=== PATIENT | female | born 1990 | race Caucasian/White ===

== ENCOUNTER 2017-08-24 09:25 | Emergency (ER) | payer BC, SELFPAY | END 2017-08-24 11:05 | disposition home or self-care (01) | PROVIDERS: Emergency Provider Nurse Practitioner Family; Family Provider Family Medicine; Visit Provider Nurse Practitioner Family | DX: J01.00 Acute maxillary sinusitis, unspecified (principal); F17.210 Nicotine dependence, cigarettes, uncomplicated; I10 Essential (primary) hypertension; Z79.3 Long term (current) use of hormonal contraceptives; Z79.899 Other long term (current) drug therapy; Z88.6 Allergy status to analgesic agent; Z88.5 Allergy status to narcotic agent; Z88.8 Allergy status to other drugs, medicaments and biological substances | CPT/HCPCS: 99201 ==

== ENCOUNTER 2017-10-26 19:58 | Emergency (ER) | payer OTHER, SELFPAY ==
[2017-10-26 20:17] VITALS: BP 132/87; PULSE 85; RESP 16; TEMP 36.4; O2SAT 98; BMI 35.7
--- NOTE | 2017-10-26 20:29 | XR_ITS ---
XR chest 2V PA and lateral chest Ordering Physician: Shasha Tucker Patient Age: 27 years: Female HISTORY: ITS.REASON: WORSENING COUGH AFTER FLU, SMOKER TECHNIQUE: PA and lateral chest COMPARISON :Previous PA/lateral chest from 01/03/2017 & AP chest November 2013 and rib series 2009 FINDINGS The lungs are well expanded and clear with no focal pneumonia or consolidation. No pneumothorax. No pleural effusion. No significant change since prior studies. Heart, maxwell and mediastinal structures appear satisfactory ribs and chest wall appear intact. T-spine unchanged. The lungs are actually better expanded on today's study than previous film IMPRESSION: Nothing definitely acute. No acute cardiopulmonary disease Lungs appear clear.
--- NOTE | 2017-10-26 20:31 | HMH.EDUTC ---
[facility] [place] Disposition Clinical Impression: Cough, Abnormal chest xray, Influenza-like illness Disposition: Home, Self-Care Condition on Discharge: Good Instructions: DI for Pneumonia -- Adult, DI for Cough -- Adult Additional Instructions: * no for sure diagnosis of pneumonia but possible early changes to suggest onset. Would explain symptoms and pneumonia is one of the more complications of the flu * your blood work suggest viral but could indicate the flu like symptoms virus you are recovering from. due to risk for infection following influenza, I will cover you with an antibiotic as well. * STOP SMOKING!!!! * start antibiotic tomorrow since we gave you first dose here. Be sure to complete entire prescription even if feeling better. * Monitor Temp. Follow up immediately for any fever. * humidifier/vaporizer/hot steamy shower * Inhaler every 4-6 hours as needed like we discussed. If unsure how to use it, ask pharmacist to demonstrate how. Should help open airways and improve cough, wheezing, shortness of breath. * Mucinex during the day for your cough and cough suppressant only at night. Be sure to drink lots of water. Insurance may not cover a prescription of mucinex. Might be cheaper to get 400mg tablets and take 2 tablets morning, midday and evening all with lots of water. * Tessalon Perles will not cause drowsiness but use at bedtime to help stop cough so that you can get some rest * Start steroid tomorrow. Helps with inflammation therefore, cough and wheezing. Follow directions on package. Rvwd side effects. Pt reports they have taken them before. Follow up IMMEDIATELY for new or worsening symptoms OR no noticeable improvement over the next 48-72 hours. 911 for difficulty breathing. Prescriptions: Albuterol Sulfate [Albuterol HFA Inhaler] 1 - 2 puffs IH Q4-6H PRN #1 inh PRN Reason: Shortness Of Breath Or Wheezing Azithromycin [Zithromax 250mg tab] 250 mg PO DAILY #4 tab Benzonatate [Benzonatate 200mg Cap] 200 mg PO HS PRN #14 cap PRN Reason: Cough predniSONE [Deltasone 10mg tablet] 10 mg PO BID 30 Days #9 tab Referrals: Tay Sutton MD [Primary Care Provider] - (Follow up IMMEDIATELY for new or worsening symptoms. If this is this weekend, return to [facility] or ER. Call Sunday and schedule a follow up appt to review final CXR results. 911 for difficulty breathing.) Time of Disposition: 21:52 Medical Decision Making Vital Signs: 10/26/17 20:17 10/26/17 21:53 Temperature 97.5 F L 97.5 F L Temperature Source Temporal Artery Scan Pulse Rate 85 Pulse Rate [Right Brachial] 85 Respiratory Rate 16 16 Blood Pressure 132/87 Blood Pressure [Right Arm] 132/87 Blood Pressure Mean [Right Arm] 102 Blood Pressure Source [Right Arm] Automatic Cuff Blood Pressure Position [Right Arm] Sitting 02 Sat by Pulse Oximetry 98 Oxygen Delivery Method Room Air - Lab Data Lab results reviewed: Yes: I reviewed the patient's lab results. Lab Results 10/26/17 20:25: Influenza Type A Ag Negative, Influenza Type B Ag Negative 10/26/17 20:40: WBC 6.1, RBC 4.49, Hgb 13.0, Hct 38.3, MCV 85.2, MCH 28.8, MCHC 33.8, RDW 12.7, Plt Count 222, MPV 10.4, Neut % (Auto) 32.2 L, Lymph % (Auto) 57.8 H, [place] % (Auto) 7.8, Eos % (Auto) 1.7, Baso % (Auto) 0.5, Neut # (Auto) 2.0, Lymph # (Auto) 3.6, [place] # (Auto) 0.5, Eos # (Auto) 0.1, Baso # (Auto) 0.0, Total Counted 100, Neutrophils % (Manual) 35 L, Band Neutrophils % 2.0, Lymphocytes % (Manual) 57 H, Monocytes % (Manual) 4, Eosinophils % (Manual) 2, Platelet Estimate Normal, RBC Morphology Normal 10/26/17 20:40: Sodium 142, Potassium 4.2, Chloride 108 H, Carbon Dioxide 24, Anion Gap 14.2, BUN 14, Creatinine 0.85, Estimated Creat Clear 150, Estimated GFR 79, Est GFR ( Amer) 96, Glucose 110 H, Calcium 8.5, Total Bilirubin 0.2, AST 13 L, ALT 31, Alkaline Phosphatase 82, Total Protein 7.4, Albumin 3.5, Globulin 3.9 H, Albumin/Globulin Ratio 0.9 L Flu A neg Flu B neg Result diagrams:
[2017-10-26 20:33] LABS: UTC Influenza A Antigen Negative (Negative); UTC Influenza B Antigen Negative (Negative)
--- NOTE | 2017-10-26 20:34 | ED_ITS ---
[facility] [place] Disposition Clinical Impression: Cough, Abnormal chest xray, Influenza-like illness Disposition: Home, Self-Care Condition on Discharge: Good Instructions: DI for Pneumonia -- Adult, DI for Cough -- Adult Additional Instructions: * no for sure diagnosis of pneumonia but possible early changes to suggest onset. Would explain symptoms and pneumonia is one of the more complications of the flu * your blood work suggest viral but could indicate the flu like symptoms virus you are recovering from. due to risk for infection following influenza, I will cover you with an antibiotic as well. * STOP SMOKING!!!! * start antibiotic tomorrow since we gave you first dose here. Be sure to complete entire prescription even if feeling better. * Monitor Temp. Follow up immediately for any fever. * humidifier/vaporizer/hot steamy shower * Inhaler every 4-6 hours as needed like we discussed. If unsure how to use it, ask pharmacist to demonstrate how. Should help open airways and improve cough, wheezing, shortness of breath. * Mucinex during the day for your cough and cough suppressant only at night. Be sure to drink lots of water. Insurance may not cover a prescription of mucinex. Might be cheaper to get 400mg tablets and take 2 tablets morning, midday and evening all with lots of water. * Tessalon Perles will not cause drowsiness but use at bedtime to help stop cough so that you can get some rest * Start steroid tomorrow. Helps with inflammation therefore, cough and wheezing. Follow directions on package. Rvwd side effects. Pt reports they have taken them before. Follow up IMMEDIATELY for new or worsening symptoms OR no noticeable improvement over the next 48-72 hours. 911 for difficulty breathing. Prescriptions: Albuterol Sulfate [Albuterol HFA Inhaler] 1 - 2 puffs IH Q4-6H PRN #1 inh PRN Reason: Shortness Of Breath Or Wheezing Azithromycin [Zithromax 250mg tab] 250 mg PO DAILY #4 tab Benzonatate [Benzonatate 200mg Cap] 200 mg PO HS PRN #14 cap PRN Reason: Cough predniSONE [Deltasone 10mg tablet] 10 mg PO BID 30 Days #9 tab Referrals: Tay Sutton MD [Primary Care Provider] - (Follow up IMMEDIATELY for new or worsening symptoms. If this is this weekend, return to [facility] or ER. Call Sunday and schedule a follow up appt to review final CXR results. 911 for difficulty breathing.) Time of Disposition: 21:52 Medical Decision Making Vital Signs: 10/26/17 20:17 10/26/17 21:53 Temperature 97.5 F L 97.5 F L Temperature Source Temporal Artery Scan Pulse Rate 85 Pulse Rate [Right Brachial] 85 Respiratory Rate 16 16 Blood Pressure 132/87 Blood Pressure [Right Arm] 132/87 Blood Pressure Mean [Right Arm] 102 Blood Pressure Source [Right Arm] Automatic Cuff Blood Pressure Position [Right Arm] Sitting 02 Sat by Pulse Oximetry 98 Oxygen Delivery Method Room Air - Lab Data Lab results reviewed: Yes: I reviewed the patient's lab results. Lab Results 10/26/17 20:25: Influenza Type A Ag Negative, Influenza Type B Ag Negative 10/26/17 20:40: WBC 6.1, RBC 4.49, Hgb 13.0, Hct 38.3, MCV 85.2, MCH 28.8, MCHC 33.8, RDW 12.7, Plt Count 222, MPV 10.4, Neut % (Auto) 32.2 L, Lymph % (Auto) 57.8 H, [place] % (Auto) 7.8, Eos % (Auto) 1.7, Baso % (Auto) 0.5, Neut # (Auto) 2.0, Lymph # (Auto) 3.6, [place] # (Auto) 0.5, Eos # (Auto) 0.1, Baso # (Auto) 0.0 , Total Counted 100, Neutrophils % (Manual) 35 L, Band Neutrophils % 2.0, Lymphocytes % (Manual) 57 H, Monocytes % (Manual) 4, Eosinophils % (Manual) 2, Platelet Estimate Normal, RBC Mo
[2017-10-26 20:59] LABS: Basophils % 0.5 % (0.1-2.0); Eosinophils # 0.1 K/mm3 (0.0-0.4); Eosinophils % 1.7 % (0.1-12.0); Hematocrit 38.3 % (37.0-47.0); Lymphocytes # 3.6 K/mm3 (0.7-4.5); Lymphocytes % 57.8 K/mm3 (10-50); Mean Corpuscular HGB Conc 33.8 g/dL (31.8-35.4); Mean Corpuscular Hemoglobin 28.8 pg (27.0-31.2); Mean Corpuscular Volume 85.2 fl (81-99); Mean Platelet Volume 10.4 fl (7.4-10.4); Monocytes # 0.5 K/mm3 (0.1-1.0); Monocytes % 7.8 % (1.7-9.3); Neutrophils % 32.2 % (37.0-80.0); Platelet Count 222 K/mm3 (142-424); Red Blood Count 4.49 M/mm3 (4.20-5.40); Red Cell Distribution Width 12.7 % (11.5-17.5); White Blood Count 6.1 K/mm3 (4.8-10.8)
[2017-10-26 21:07] LABS: MANUAL DIFFERENTIAL MANUAL DIFFERENTIAL (MANUAL DIFF)
[2017-10-26 21:12] LABS: Alanine Aminotransferase 31 U/L (12-78); Albumin Level 3.5 gm/dL (3.4-5.0); Albumin/Globulin Ratio 0.9 (1.1-1.8); Alkaline Phosphatase 82 U/L (46-116); Anion Gap 14.2 mEq/L (5-15); Aspartate Amino Transferase 13 U/L (15-37); Bilirubin,Total 0.2 mg/dL (0.2-1.0); Blood Urea Nitrogen 14 mg/dL (7-18); Calcium 8.5 mg/dL (8.5-10.1); Carbon Dioxide 24 mmol/L (21.0-32.0); Chloride 108 mmol/L (98-107); Creatinine Clearance Estimated 150 mL/min (0-300); Creatinine,Serum 0.85 mg/dL (0.55-1.02); Estimated Glomerular Filt Rate 79 ml/min (>60); GFR (African American) 96 ML/MIN (>60); Globulin 3.9 gm/dl (1.3-3.2); Glucose 110 mg/dL (74-106); Potassium 4.2 mmoL/L (3.5-5.1); Sodium 142 mmol/L (136-145); Total Protein,Serum 7.4 gm/dL (6.4-8.2)
[2017-10-26 21:34] LABS: Eosinophils % 2 % (0-3); Lymphocytes % 57 % (10-50); Monocytes % 4 % (2-9); Neutrophils % 35 % (42-76); Platelet Estimate Normal; RBC Morphology Normal; Total Cells Counted 100
[2017-10-26 21:53] VITALS: BP 132/87; PULSE 85; RESP 16; TEMP 36.4; O2SAT 98
== END 2017-10-26 21:56 | disposition home or self-care (01) ==
PROVIDERS: Emergency Provider Nurse Practitioner Family; Family Provider Family Medicine; PCP Family Medicine
DX: J11.1 Influenza due to unidentified influenza virus with other respiratory manifestations (principal); R93.8 Abnormal findings on diagnostic imaging of other specified body structures; I10 Essential (primary) hypertension; F17.210 Nicotine dependence, cigarettes, uncomplicated; E87.6 Hypokalemia
CPT/HCPCS: 71046; 80053; 85007; 85025; 87804; 99202

== ENCOUNTER → 2017-11-15 09:11 | Outpatient (CLI) | payer OTHER, SELFPAY ==
--- NOTE | 2017-11-15 09:13 | XR_ITS ---
XR hip LT 2-3V w/pelvis HISTORY: Left hip pain ITS.REASON: hip pain ORDERING PHYSICIAN: Fabian Wynne MD PATIENT AGE: 27 years COMPARISON: None FINDINGS: No fracture or dislocation is evident. No significant degenerative change. No lytic or blastic change. Unremarkable soft tissues. Bilateral tubal ligation clips are present IMPRESSION: Negative left hip
--- NOTE | 2017-11-15 09:13 | XR_ITS ---
XR hip RT 2-3V w/pelvis HISTORY: ITS.REASON: right hip pain ORDERING PHYSICIAN: Fabian Wynne MD PATIENT AGE: 27 years COMPARISON: None FINDINGS: No fracture or dislocation is evident. No significant degenerative change. No lytic or blastic change. Unremarkable soft tissues IMPRESSION: Negative right hip
== END ==
PROVIDERS: PCP Family Medicine; Visit Provider Orthopaedic Surgery
DX: M25.552 Pain in left hip (principal); M25.551 Pain in right hip
CPT/HCPCS: 73502

== ENCOUNTER 2018-07-29 09:00 | Outpatient (RCR) | payer OTHER, SELFPAY | END 2018-07-29 09:05 | disposition home or self-care (01) | LOC: PT 09:00 | PROVIDERS: Family Provider Family Medicine; PCP Family Medicine; Visit Provider Orthopaedic Surgery Adult Reconstructive Orthopaedic Surgery | DX: Z98.890 Other specified postprocedural states (principal); M25.851 Other specified joint disorders, right hip | CPT/HCPCS: 97110; 97140; 97163 ==

== ENCOUNTER 2018-08-16 09:20 | Outpatient (RCR) | payer OTHER, SELFPAY | END 2018-08-16 09:30 | disposition home or self-care (01) | LOC: PT 09:20 | PROVIDERS: Visit Provider Orthopaedic Surgery Adult Reconstructive Orthopaedic Surgery | DX: Z98.890 Other specified postprocedural states (principal); M25.852 Other specified joint disorders, left hip | CPT/HCPCS: 97110; 97163 ==

== ENCOUNTER → 2018-09-24 13:03 | Outpatient (POV) | payer OTHER, SELFPAY | PROVIDERS: Visit Provider Dermatology | DX: Z00.00 Encounter for general adult medical examination without abnormal findings (principal) ==

== ENCOUNTER → 2018-12-12 09:25 | Outpatient (CLI) | payer OTHER, SELFPAY ==
--- NOTE | 2018-12-12 09:30 | US_ITS ---
US transvaginal Ordering Physician: Fabian Freire MD Patient Age: 28 years: Female HISTORY: ITS.REASON: US T/V- Pelvic pain4 months. TECHNIQUE: Transvaginal pelvic ultrasound COMPARISON :CT abdomen pelvis May 2017. FINDINGS The uterus generous upper normal size..: 9.1 cm length x 5 cm AP x 5.5 cm wide. . The technologist identified no discrete fibroids. None are imaged.. Endometrial stripe is thin to the body of the uterus, but becomes generous superiorly at fundus measuring up to 1.1 cm maximally. Overall right ovary including the cyst measures 3.4 x 3.9 x 2.2 cm. Dominant Right ovary cyst is noted and. measures up to 2.5 cm x 2 0.2 thousand 2 cm. Slightly septated cyst. & Possibly hemorrhagic cyst There are some internal echoes. Left ovary with normal limits. Normal size. 2.56 x 2.3 cm x 1.9 cm. Only a few tiny follicles barely evident. No fluid in cul-de-sac. IMPRESSION 1... Right ovary is larger than left. ... Right ovary measures 3.9 cm maximally. ... & contains a slightly septated debris-filled cyst cyst that measures up to 2.5 cm x 2.2 cm. Likely hemorrhagic cyst 2.. Left ovary: Normal size and appearance. 3. Uterus Upper normal size. . endometrial stripe becomes more prominent superiorly towards fundus where it measures up to measures 1.1 cm. AP .
== END ==
PROVIDERS: PCP Family Medicine; Visit Provider Nurse Practitioner Obstetrics & Gynecology
DX: R10.2 Pelvic and perineal pain (principal)
CPT/HCPCS: 76830

== ENCOUNTER → 2020-01-21 12:01 | Outpatient (CLI) | payer SELFPAY ==
[2020-01-21 13:40] LABS: Alanine Aminotransferase 17 U/L (12-78); Albumin Level 4.9 g/dl (3.5-5.0); Albumin/Globulin Ratio 1.8 (1.1-1.8); Alkaline Phosphatase 78 U/L (38-126); Anion Gap 10.4 mEq/L (5-15); Aspartate Amino Transferase 19 U/L (14-36); Bilirubin,Total 0.3 mg/dl (0.2-1.3); Blood Urea Nitrogen 13 mg/dl (7-17); Calcium 10.2 mg/dl (8.4-10.2); Carbon Dioxide 26 mmol/L (22.0-30.0); Chloride 104 mmol/L (98-107); Estimated Glomerular Filt Rate 98 ml/min (>60); GFR (African American) 118 ML/MIN (>60); Globulin 2.8 g/dL (1.3-3.2); Glucose 102 mg/dl (74-100); Potassium 4.4 mmoL/L (3.5-5.1); Sodium 136 mmol/L (136-145); Total Protein,Serum 7.7 g/dl (6.3-8.2)
[2020-01-21 14:11] LABS: Thyroid Stimulating Hormone 2.71 uIU/mL (0.465-4.68)
[2020-01-22 11:16] LABS: Vitamin D 25 Hydroxy 22.1 ng/mL (30.0-100.0)
== END ==
PROVIDERS: Visit Provider Physician Assistant
DX: E06.3 Autoimmune thyroiditis (principal); E87.6 Hypokalemia; E55.9 Vitamin D deficiency, unspecified
CPT/HCPCS: 36415; 80053; 82652; 84439; 84443

== ENCOUNTER → 2022-11-07 09:09 | Outpatient (CLI) | payer OTHER, SELFPAY ==
--- NOTE | 2022-11-07 09:21 | XR_ITS ---
FINAL REPORT CLINICAL HISTORY: BONY TUMOR ON FOREHEAD FINDINGS: FACIAL BONES 3 views were obtained. No obvious fracture is present. Paranasal sinuses are grossly clear. The orbital rims are intact. On the lateral view, there is mild prominence to the frontal bone. No discrete underlying bony lesion is identified and this is favored to be a normal variant. IMPRESSION: No osseous abnormality identified. Reviewed, Interpreted and Dictated by Berenice Quiroz MD Transcribed by Nehal Cheng Authenticated and . [facility]
== END ==
LOC: RAD 09:13
PROVIDERS: PCP Family Medicine; Visit Provider Dermatology
DX: R93.89 Abnormal findings on diagnostic imaging of other specified body structures (principal)
CPT/HCPCS: 70150

== ENCOUNTER → 2022-11-07 09:17 | Outpatient (POV) | payer OTHER, SELFPAY | PROVIDERS: Visit Provider Dermatology | DX: Z00.00 Encounter for general adult medical examination without abnormal findings (principal) ==

== ENCOUNTER 2023-02-12 19:44 | Emergency (ER) | payer SELFPAY ==
[2023-02-12 19:50] VITALS: BP 142/88; PULSE 96; RESP 21; TEMP 37.3; O2SAT 98; BMI 30.4
[2023-02-12 19:57] LABS: Color,Urine Dark Yellow (Yellow)
[2023-02-12 19:58] LABS: Apearance,Urine Cloudy (Clear); Bilirubin,Urine Negative (Negative); Blood, Urine 1+ (Negative); Glucose,Urine (UA) Negative (Negative); Ketones,Urine Negative (Negative); Protein,Urine 1+ (Negative); Specific Gravity, Urine 1.015 (1.005-1.030); UTC Leukocyte Esterase,Urine 2+ (Negative); UTC Nitrate,Urine Positive (Negative); Urobilinogen,Urine 0.2 EU/dl (0.2)
[2023-02-12 20:02] VITALS: BP 142/88; PULSE 96; RESP 21; TEMP 37.3; O2SAT 98
--- NOTE | 2023-02-12 20:04 | EXP.UTC ---
Discharge Plan Disposition Patient Disposition: Home, Self-Care Condition: Good Prescriptions Prescriptions: New ciprofloxacin HCl [Cipro] 500 mg tablet 500 mg PO BID 7 Days Qty: 14 0RF No Action venlafaxine 225 mg tablet extended release 24hr 225 mg PO DAILY 30 Days Qty: 30 tramadol 50 mg tablet 100 mg PO DAILY 30 Days Qty: 60 gabapentin 300 mg capsule 300 mg PO BID 30 Days Qty: 60 hydroxyzine HCl 50 mg tablet 50 mg PO DAILY labetalol 200 mg tablet 200 mg PO BID nitrofurantoin monohyd/m-cryst [Macrobid] 100 mg capsule 100 mg PO BID Qty: 14 0RF Rx Instructions: must administer with a meal/food phenazopyridine 100 MG tablet 100 mg PO BID PRN (Reason: Breakthru Mild Pain) 3 Days Qty: 6 0RF phenazopyridine 100 MG tablet 100 mg PO BID PRN (Reason: Breakthru Mild Pain) 3 Days Qty: 6 0RF fluticasone propionate 120 SPR/BOT bottle 2 spr NS DAILY Qty: 1 0RF Rx Instructions: each nostril daily phenazopyridine 200 MG tablet 200 pow PO TID Qty: 6 0RF ondansetron 4 MG tablet,disintegrating 4 mg PO Q8HP PRN (Reason: Nausea) Qty: 9 0RF nitrofurantoin monohyd/m-cryst 100 MG capsule 100 mg PO BID 5 Days Qty: 10 0RF Referrals Follow up/Referrals: Tay Sutton MD [Primary Care Provider] - See instructions Activity Restrictions/Add. Instructions Additional Instructions/Restrictions: *Increase fluids. Water not Soda or Tea *Start antibiotic immediately and be sure to take as ordered for the FULL length of time although you should start to see improvement over the next 48 hours *Be SURE to follow up anytime for new or worsening symptoms with your family doctor. AND in 48 hours for urine culture results with your family doctor, if you do not have a doctor then you may call back to the [facility] for urine culture results and further treatment. We do recommend that you choose and establish care with a Primary Care Physician. ?AND follow up with them ?in 10-14 days to repeat UA to ensure infection is resolved and blood no longer present *Be sure to let your PCP know that we sent urine cultures from the [facility] so they can follow up to ensure that you area the on the correct antibiotic Call your doctor office and make appointment for 48 hours (2 days from today) ?to follow up and get the results of your urine culture and further treatment Clinical Impressions Clinical Impression: UTI (urinary tract infection) Instructions Patient Instructions: Ciprofloxacin, DI for Urinary Tract Infection (UTI), Urinary Tract Infection Discharge ED Provider: Roula Underwood [facility] [place] HPI General Stated complaint: fever backpain chills Mode of Arrival: Ambulatory Source of Information: Patient Limitations: No Limitations Time Seen by Provider: 02/12/23 20:04 Description of Symptoms (Recalled from Triage Doc. by RN): PATIENT C/O FEVER, CHILLS, NAUSEA, AND LOWER BACK PAIN X 5 DAYS HEENT Symptoms (Recalled from RN notes): No Resp Symptoms (Recalled from RN notes): No Skin Symptoms (Recalled from RN notes): No MS Symptoms (Recalled from RN notes): No Functional Status (Recalled from RN notes): WNL History of Present Illness Provider Complaint: Patient states that she started on with bodyaches, chills, low grade fever and not feeling well States that she laid around the weekend and then yesterday she started having low back pain States that today she was still not feeling well so she came in to get checked not sure if she may have a UTI or flu or something Related Data Home Medications Medication Instructions Recorded Confirmed hydroxyzine HCl 50 mg tablet 50 mg PO DAILY Anxiety 11/15/17 12/31/18 labetalol 200 mg tablet 200 mg PO BID bp 11/15/17 12/31/18 gabapentin 300 mg capsule 300 mg PO BID Pain 30 days #60 caps 12/06/18 12/31/18 tramadol 50 mg tablet 100 mg PO DAILY Pain 30 days #60 12/06/18 12/31/18 tabs venlafaxine 225 mg tablet,extended 225 mg PO DAILY Depressi
== END 2023-02-12 20:38 | disposition home or self-care (01) ==
PROVIDERS: Emergency Provider Nurse Practitioner; PCP Family Medicine
DX: N39.0 Urinary tract infection, site not specified (principal); R50.9 Fever, unspecified; M54.59 Other low back pain; F17.210 Nicotine dependence, cigarettes, uncomplicated; B96.89 Other specified bacterial agents as the cause of diseases classified elsewhere
CPT/HCPCS: 81003; 87086; 87088; 87186; 99204; 99212; G0463

== ENCOUNTER 2023-04-29 15:05 | Emergency (ER) | payer SELFPAY ==
[2023-04-29] VITALS (11 sets, daily range): BP systolic 123–174; BP diastolic 84–113; PULSE 67–108; RESP 17–19; TEMP 36.6–36.8; O2SAT 95–100; BMI 31.6
--- NOTE | 2023-04-29 15:02 | ECG_ITS ---
APPROVED REPORT Exam: Resting ECG HR:103 bpm ECG Measurements Heart Rate 103 AXES CA 131 P 69 QRSd 105 QRS 66 QT 351 T 7 QTc 411 Conclusion SINUS TACHYCARDIA NONSPECIFIC ST & T-WAVE ABNORMALITY ABNORMAL RHYTHM ECG UNCONFIRMED REPORT Electronically signed by : Chris Donovan MD 05/01/2023 19:47:46
--- NOTE | 2023-04-29 15:13 | PC.NURSE ---
at bs speaking with pt
--- NOTE | 2023-04-29 15:19 | HMH.EDGENADL ---
Discharge Plan Disposition Patient Disposition: Home, Self-Care Condition: Good Chief Complaint: Chest Pain Prescriptions Prescriptions: No Action venlafaxine 225 mg tablet extended release 24hr 225 mg PO DAILY 30 Days Qty: 30 tramadol 50 mg tablet 100 mg PO DAILY 30 Days Qty: 60 gabapentin 300 mg capsule 300 mg PO BID 30 Days Qty: 60 hydroxyzine HCl 50 mg tablet 50 mg PO DAILY labetalol 200 mg tablet 200 mg PO BID nitrofurantoin monohyd/m-cryst [Macrobid] 100 mg capsule 100 mg PO BID Qty: 14 0RF Rx Instructions: must administer with a meal/food phenazopyridine 100 MG tablet 100 mg PO BID PRN (Reason: Breakthru Mild Pain) 3 Days Qty: 6 0RF phenazopyridine 100 MG tablet 100 mg PO BID PRN (Reason: Breakthru Mild Pain) 3 Days Qty: 6 0RF fluticasone propionate 120 SPR/BOT bottle 2 spr NS DAILY Qty: 1 0RF Rx Instructions: each nostril daily phenazopyridine 200 MG tablet 200 pow PO TID Qty: 6 0RF ondansetron 4 MG tablet,disintegrating 4 mg PO Q8HP PRN (Reason: Nausea) Qty: 9 0RF nitrofurantoin monohyd/m-cryst 100 MG capsule 100 mg PO BID 5 Days Qty: 10 0RF ciprofloxacin HCl [Cipro] 500 mg tablet 500 mg PO BID 7 Days Qty: 14 0RF Referrals Follow up/Referrals: Provider,Referral, MD [Referring] - See instructions Activity Restrictions/Add. Instructions Additional Instructions/Restrictions: At this time it was felt you are safe to be discharged home. If new or worsening symptoms please do not hesitate to return the emergency department. Please follow-up on an outpatient basis for continued evaluation of your anxiety. Clinical Impressions Clinical Impression: Chest pain, Anxiety Discharge ED Provider: Karsten Harris General Adult HPI General Chief complaint: Chest Pain Stated complaint: cp Time Seen by Provider: 04/29/23 15:10 Mode of Arrival: Ambulatory Source of Information: Patient Limitations: No Limitations Description of Symptoms (Recalled from ER Triage Doc. by RN): 32 yo F presents to ED with c/o chest pain. pts reports intermittent chest pain radiating to shoulders. pt concerned for uti, because she states that her kidneys have also been hurting. History of Present Illness HPI narrative: Patient is a 32-year-old female with past medical history of palpitations who presents emergency department for evaluation of chest burning. Onset was acute, occurring approximately an hour prior to arrival. Substernal, radiating up to her left shoulder blade in her back as well as down her left upper extremity. Patient states she feels she has right kidney pain consistent with her previous urinary tract infections. Denies true dysuria however states she does not have dysuria with her urinary tract infections. No other acute complaints at this time. Related Data Home Medications Medication Instructions Recorded Confirmed hydroxyzine HCl 50 mg tablet 50 mg PO DAILY Anxiety 11/15/17 12/31/18 labetalol 200 mg tablet 200 mg PO BID bp 11/15/17 12/31/18 gabapentin 300 mg capsule 300 mg PO BID Pain 30 days #60 caps 12/06/18 12/31/18 tramadol 50 mg tablet 100 mg PO DAILY Pain 30 days #60 12/06/18 12/31/18 tabs venlafaxine 225 mg tablet,extended 225 mg PO DAILY Depression 30 days 12/06/18 12/31/18 release 24 hr #30 tabs Previous Rx's Medication Instructions Recorded phenazopyridine 100 mg tablet 100 mg PO BID PRN Breakthru Mild 03/29/19 Pain 3 days #6 tabs phenazopyridine 100 mg tablet 100 mg PO BID PRN Breakthru Mild 03/29/19 Pain 3 days #6 tabs nitrofurantoin 100 mg PO BID #14 caps 04/01/19 monohydrate/macrocrystals 100 mg capsule (Macrobid) fluticasone propionate 50 2 spr NS DAILY ##1 05/27/19 mcg/actuation nasal spray,suspension nitrofurantoin 100 mg PO BID 5 days #10 caps 11/23/19 monohydrate/macrocrystals 100 mg capsule ondansetron 4 mg disintegrating 4 mg PO Q8HP PRN Nausea ##9 11/23/19 tablet p
--- NOTE | 2023-04-29 15:24 | CT_ITS ---
PROCEDURE INFORMATION: Exam: CTA Chest With Contrast Exam date and time: 04/29/2023 4:14 PM Age: 32 years old Clinical indication: Pain; Other: Generalized chest burning sensation; Patient HX: Chest burning sendsation for 3 days. Possible panic attack per patient. ; Additional info: Cp radiating to back, L arm, tachy TECHNIQUE: Imaging protocol: Computed tomographic angiography of the chest with contrast. Exam focused on the arteries. 3D rendering (Not supervised by radiologist): MIP and/or 3D reconstructed images were created by the technologist. Radiation optimization: All CT scans at this facility use at least one of these dose optimization techniques: automated exposure control; mA and/or kV adjustment per patient size (includes targeted exams where dose is matched to clinical indication); or iterative reconstruction. Contrast material: ISOVUE 370; Contrast volume: 100 ml; Contrast route: INTRAVENOUS (IV); REPORTING DATA: Count of CT and Cardiac NM exams in prior 12 months: This patient has received 0 known CTs and 0 known cardiac nuclear medicine studies in the 12 months prior to the current study. COMPARISON: CR CXR2V XR chest 2V 08/14/2018 3:48 PM FINDINGS: Pulmonary arteries: No evidence of pulmonary embolism. Aorta: No aortic dissection or aneurysm. Lungs: No evidence of acute airspace consolidation. No pulmonary edema. Pleural spaces: No pneumothorax. No pleural effusion. Heart: No cardiomegaly. No significant pericardial effusion. Lymph nodes: No enlarged lymph nodes by CT criteria. Intraperitoneal space: No emergent findings or suspicious mass lesions in the visualized upper abdomen. Bones/joints: No acute osseous abnormality. Soft tissues: Unremarkable. IMPRESSION: No evidence of pulmonary embolism or other acute process in the chest.
[2023-04-29 15:28] LABS: Microscopic, Urine URINE MICROSCOPIC (MICROSCOPIC)
[2023-04-29 15:33] LABS: Basophils # 0.1 K/mm3 (0-0.2); Basophils % 0.7 % (0.1-2.0); Eosinophils # 0.1 K/mm3 (0.0-0.4); Eosinophils % 1.1 % (0.1-12.0); Hematocrit 38.3 % (37.0-47.0); Hemoglobin 12.9 g/dL (12.2-16.2); Lymphocytes # 3.1 K/mm3 (0.7-4.5); Lymphocytes % 27.9 % (10-50); Mean Corpuscular HGB Conc 33.8 g/dL (31.8-35.4); Mean Corpuscular Hemoglobin 29.1 pg (27.0-31.2); Mean Corpuscular Volume 86.1 fl (81-99); Mean Platelet Volume 9.7 fl (7.4-10.4); Monocytes # 0.7 K/mm3 (0.1-1.0); Monocytes % 6.3 % (1.7-9.3); Neutrophils # 7.1 K/mm3 (1.8-7.8); Neutrophils % 63.9 % (37.0-80.0); Platelet Count 298 K/mm3 (142-424); Red Blood Count 4.45 M/mm3 (4.20-5.40); Red Cell Distribution Width 13.2 % (11.5-17.5); White Blood Count 11.1 K/mm3 (4.8-10.8)
[2023-04-29 15:35] LABS: Chloride 104 mmol/L (98-107)
[2023-04-29 15:35] LABS: Appearance,Urine CLEAR (Clear); Bilirubin,Urine Negative (Negative); Blood, Urine Negative (Negative); Color,Urine YELLOW (Yellow); Glucose,Urine (UA) Negative (Negative); Ketones,Urine Negative (Negative); Leukocyte Esterase,Urine Negative (Negative); Nitrate,Urine Negative (Negative); PH,Urine 5.5 (5.0-8.5); Protein,Urine Negative (Negative); Urobilinogen,Urine 0.2 EU/dl (0.2)
[2023-04-29 15:36] LABS: Potassium 3.4 mmoL/L (3.5-5.1); Sodium 141 mmol/L (136-145)
[2023-04-29 15:38] LABS: Blood Urea Nitrogen 8 mg/dl (7-17); Creatinine Clearance Estimated 120 mL/min (50-200); Estimated Glomerular Filt Rate 72 ml/min (>60); GFR (African American) 87 ML/MIN (>60); HCG Qualitative, Serum Negative (Negative)
[2023-04-29 15:39] LABS: Alanine Aminotransferase 25 U/L (12-78); Albumin Level 4.5 g/dl (3.5-5.0); Albumin/Globulin Ratio 1.3 (1.1-1.8); Alkaline Phosphatase 73 U/L (38-126); Anion Gap 17.4 mEq/L (5-15); Aspartate Amino Transferase 31 U/L (14-36); Bilirubin,Total 0.5 mg/dl (0.2-1.3); Calcium 9.9 mg/dl (8.4-10.2); Carbon Dioxide 23 mmol/L (22.0-30.0); Globulin 3.4 g/dL (1.3-3.2); Glucose 91 mg/dl (74-100); Total Protein,Serum 7.9 g/dl (6.3-8.2)
[2023-04-29 15:42] LABS: Squamous Epithelial Cell,Urine Occasional #/hpf (0-5); WBC,Urine Occasional #/hpf (0-3)
--- NOTE | 2023-04-29 15:47 | ECG_ITS ---
APPROVED REPORT Exam: Resting ECG HR:99 bpm ECG Measurements Heart Rate 99 AXES [place] 130 P 72 QRSd 101 QRS 68 QT 347 T 49 QTc 404 Conclusion SINUS RHYTHM NONSPECIFIC ST & T-WAVE ABNORMALITY BORDERLINE ECG UNCONFIRMED REPORT Electronically signed by : Chris Donovan MD 05/01/2023 19:47:28
[2023-04-29 15:50] LABS: Troponin I < 0.01 ng/ml (0.00-0.034)
[2023-04-29 18:33] LABS: Troponin I < 0.01 ng/ml (0.00-0.034)
== END 2023-04-29 19:15 | disposition home or self-care (01) ==
PROVIDERS: Emergency Provider Emergency Medicine; PCP Family Medicine
DX: R07.9 Chest pain, unspecified (principal); M79.602 Pain in left arm; M25.512 Pain in left shoulder; F17.210 Nicotine dependence, cigarettes, uncomplicated
CPT/HCPCS: 36415; 71275; 80053; 81001; 84484; 84703; 85025; 93005; 96361; 96374; 96375; 99285; Q9967

== ENCOUNTER 2023-05-16 23:42 | Emergency (ER) | payer SELFPAY ==
[2023-05-16 23:49] VITALS: BP 160/105; PULSE 109; RESP 18; TEMP 36.9; O2SAT 98; BMI 31.1
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
[2023-05-17 00:29] LABS: Basophils # 0.1 K/mm3 (0-0.2); Basophils % 0.5 % (0.1-2.0); Eosinophils # 0.1 K/mm3 (0.0-0.4); Eosinophils % 0.6 % (0.1-12.0); Hematocrit 40.5 % (37.0-47.0); Hemoglobin 13.5 g/dL (12.2-16.2); Lymphocytes # 1.9 K/mm3 (0.7-4.5); Lymphocytes % 14.3 % (10-50); Mean Corpuscular HGB Conc 33.3 g/dL (31.8-35.4); Mean Platelet Volume 9.6 fl (7.4-10.4); Monocytes # 0.7 K/mm3 (0.1-1.0); Monocytes % 5.6 % (1.7-9.3); Neutrophils # 10.4 K/mm3 (1.8-7.8); Platelet Count 319 K/mm3 (142-424); Red Blood Count 4.65 M/mm3 (4.20-5.40); Red Cell Distribution Width 12.9 % (11.5-17.5); White Blood Count 13.2 K/mm3 (4.8-10.8)
[2023-05-17 00:31] LABS: Chloride 107 mmol/L (98-107); Potassium 3.5 mmoL/L (3.5-5.1); Sodium 141 mmol/L (136-145)
[2023-05-17 00:33] LABS: Blood Urea Nitrogen 15 mg/dl (7-17)
[2023-05-17 00:34] LABS: Alanine Aminotransferase 22 U/L (12-78); Albumin Level 4.5 g/dl (3.5-5.0); Albumin/Globulin Ratio 1.4 (1.1-1.8); Alkaline Phosphatase 76 U/L (38-126); Anion Gap 14.5 mEq/L (5-15); Aspartate Amino Transferase 25 U/L (14-36); Bilirubin,Total 0.8 mg/dl (0.2-1.3); Calcium 10.1 mg/dl (8.4-10.2); Carbon Dioxide 23 mmol/L (22.0-30.0); Creatinine Clearance Estimated 133 mL/min (50-200); Estimated Glomerular Filt Rate 82 ml/min (>60); GFR (African American) 99 ML/MIN (>60); Globulin 3.3 g/dL (1.3-3.2); Glucose 114 mg/dl (74-100); Total Protein,Serum 7.8 g/dl (6.3-8.2)
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
[2023-05-17 01:05] VITALS: BP 123/75; PULSE 75; RESP 19; TEMP 36.6; O2SAT 98
== END 2023-05-17 01:07 | disposition home or self-care (01) ==
PROVIDERS: Emergency Provider Emergency Medicine; PCP Family Medicine
DX: T71.193A Asphyxiation due to mechanical threat to breathing due to other causes, assault, initial encounter (principal); M54.2 Cervicalgia; Y04.8XXA Assault by other bodily force, initial encounter; Y07.030 Male partner, current, perpetrator of maltreatment and neglect
CPT/HCPCS: 70498; 80053; 85025; 99284; Q9967

== ENCOUNTER 2023-05-17 10:50 | Emergency (ER) | payer SELFPAY ==
[2023-05-17 11:00] VITALS: BP 167/93; PULSE 101; RESP 21; TEMP 36.7; O2SAT 100; BMI 30.9
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
[2023-05-17 11:40] VITALS: BP 167/93; PULSE 101; RESP 21; TEMP 36.7; O2SAT 100
== END 2023-05-17 11:42 | disposition home or self-care (01) ==
PROVIDERS: Emergency Provider Nurse Practitioner; PCP Family Medicine
DX: F41.0 Panic disorder [episodic paroxysmal anxiety] (principal)
CPT/HCPCS: 99212; 99214; G0463

== ENCOUNTER → 2023-06-14 14:05 | Outpatient (CLI) | payer BC, SELFPAY ==
[2023-06-14 21:17] LABS: Thyroid Stimulating Hormone 2.77 uIU/mL (0.465-4.68)
== END ==
PROVIDERS: PCP Internal Medicine; Visit Provider Internal Medicine
DX: E05.90 Thyrotoxicosis, unspecified without thyrotoxic crisis or storm (principal)
CPT/HCPCS: 84443

== ENCOUNTER → 2023-07-19 16:04 | Outpatient (CLI) | payer BC, SELFPAY ==
--- NOTE | 2023-07-19 16:04 | US_ITS ---
PROCEDURE: US TRANSVAGINAL CLINICAL INDICATION: abnormal heavy uterine bleeding COMPARISON: No exams were available for comparison FINDINGS: Transvaginal sonographic images of the pelvis were obtained. UTERUS: 9.5 cm x 4.7 cmx 5.5 cm with a combined endometrial thickness of 9.9mm. There is a 1.2 cm nabothian cyst in the cervix. . LEFT OVARY: 2.1 cmx2.3 cmx2.2cm with a volume of 5.4ml. There are several small follicles in the left ovary the largest of which measures 1.5 cm x 1.2 cm x 1.2 cm. RIGHT OVARY: 4.5 cmx 3.7 cmx2.5 cm with a volume of 21.1ml. There is a multilocular follicle in the right ovary measuring 3.3 cm x 3.0 cm x 2.3 cm. Doppler flow to both ovaries are seen. There is no fluid in the cul-de-sac. IMPRESSION: 1. Anteverted bulky uterus upper limits of normal size. The endometrium appears normal. 2. The left ovary has a number of small follicles. 3. The right ovary has a multilocular dominant follicle measuring 3.3 cm. 4. No fluid in the cul-de-sac. Dictated by: Fabian Freire MD 07/19/2023 17:10 Fabian Freire MD in OV 07/19/2023 17:10
== END ==
PROVIDERS: PCP Internal Medicine; Visit Provider Nurse Practitioner Obstetrics & Gynecology
DX: N93.9 Abnormal uterine and vaginal bleeding, unspecified (principal)
CPT/HCPCS: 76830

== ENCOUNTER 2023-10-18 11:08 | Emergency (ER) | payer BC, SELFPAY ==
[2023-10-18 11:45] VITALS: BP 174/86; PULSE 87; RESP 18; TEMP 36.7; O2SAT 97; BMI 34.2
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
[2023-10-18 12:06] LABS: Apearance,Urine Clear (Clear); Bilirubin,Urine Negative (Negative); Blood, Urine Negative (Negative); Color,Urine Yellow (Yellow); Glucose,Urine (UA) Negative (Negative); Ketones,Urine Negative (Negative); Protein,Urine Negative (Negative); Specific Gravity, Urine 1.015 (1.005-1.030); UTC Leukocyte Esterase,Urine Negative (Negative); UTC Nitrate,Urine Negative (Negative); Urobilinogen,Urine 0.2 EU/dl (0.2)
[2023-10-18 12:17] VITALS: BP 174/86; PULSE 87; RESP 18; TEMP 36.7; O2SAT 97
== END 2023-10-18 12:17 | disposition home or self-care (01) ==
PROVIDERS: Emergency Provider Nurse Practitioner; PCP Internal Medicine
DX: R10.30 Lower abdominal pain, unspecified (principal); M54.50 Low back pain, unspecified; R35.0 Frequency of micturition; R39.15 Urgency of urination; F17.290 Nicotine dependence, other tobacco product, uncomplicated
CPT/HCPCS: 81003; 87086; 99212; 99214; G0463

== ENCOUNTER 2023-11-27 07:58 | Outpatient (CLI) | payer BC, SELFPAY ==
--- NOTE | 2023-11-27 07:58 | US_ITS ---
FINAL REPORT TECHNIQUE: Ultrasound images of the kidneys and bladder were obtained. CLINICAL HISTORY: .hypertension COMPARISON: None FINDINGS: The right kidney measures 9.6 cm in length. It is normal in echogenicity. There is no hydronephrosis. The left kidney measures 9.9 cm in length. It is normal in echogenicity. There is no hydronephrosis. The urinary bladder is unremarkable. IMPRESSION: Unremarkable renal ultrasound. Reviewed, Interpreted and Dictated by Sandeep Bocanegra III, MD Transcribed by Kristie Soto Authenticated and [facility]
--- NOTE | 2023-11-27 07:58 | US_ITS ---
FINAL REPORT TECHNIQUE: Limited sonographic images of the thyroid were obtained. CLINICAL HISTORY: thyroid nodule--no prev us here FINDINGS: The thyroid is somewhat enlarged with a heterogeneous echotexture. The right lobe of the thyroid measures 5.9 x 2.8 x 2.0 cm. There is a probable parathyroid gland on the right. The left lobe of the thyroid measures 5.3 x 2.2 x 1.8 cm. No mass or nodule is identified. The isthmus measures 8 mm. There is a dominant, solid hypoechoic nodule measuring 22 x 13 x 19 mm. IMPRESSION: Dominant isthmus nodule. Recommend ultrasound-guided biopsy. Reviewed, Interpreted and Dictated by Sandeep Bocanegra III, MD Transcribed by Bridget Rashid Authenticated and [facility]
--- NOTE | 2023-11-27 08:02 | CA_ITS ---
FINAL REPORT TECHNIQUE: Grayscale, color Doppler and duplex Doppler ultrasound of the kidneys, aorta and renal arteries was performed. Multiple velocities were measured. CLINICAL HISTORY: uncontrolled htn COMPARISON: None FINDINGS: Aorta velocity: 95 cm/sec Right kidney: 10.7 cm. No evidence of hydronephrosis or mass. Right intrarenal RI: 0.60-0.63 Right renal artery velocity: 156 cm/sec. Right RAR (Renal artery-Aortic Ratio): 1.65 Left Kidney: 10.5 cm. No evidence of hydronephrosis or mass. Left intrarenal RI: 0.57-0.61 Left renal artery velocity: 153 cm/sec. Left RAR (Renal Artery-Aortic Ratio): 1.62 IMPRESSION: No evidence of significant renal artery stenosis. CT angiogram or postcontrast MR angiogram would be more sensitive for evaluation of possible renal artery stenosis. Reviewed, Interpreted and Dictated by Sandeep Bocanegra III, MD Transcribed by Kristie Soto Authenticated and [facility]
== END 2023-11-27 23:59 ==
LOC: RT 07:58
PROVIDERS: PCP Internal Medicine; Visit Provider Family Medicine
DX: E04.9 Nontoxic goiter, unspecified (principal); I10 Essential (primary) hypertension; F17.290 Nicotine dependence, other tobacco product, uncomplicated
CPT/HCPCS: 76536; 76770; 93976

== ENCOUNTER 2023-12-28 01:03 | Emergency (ER) | payer BC, SELFPAY ==
[2023-12-28 01:03] VITALS: BP 167/91; PULSE 85; RESP 16; TEMP 36.6; O2SAT 100; BMI 33.0
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
--- NOTE | 2023-12-28 01:09 | ECG_ITS ---
APPROVED REPORT Exam: Resting ECG HR:97 bpm ECG Measurements Heart Rate 97 AXES OR 152 P 72 QRSd 112 QRS 58 QT 360 T 24 QTc 414 Conclusion SINUS RHYTHM MODERATE INTRAVENTRICULAR CONDUCTION DELAY [110+ ms QRS DURATION] NONSPECIFIC ST & T-WAVE ABNORMALITY BORDERLINE ECG UNCONFIRMED REPORT Electronically signed by : PETER GE, 12/31/2023 02:56:51
--- NOTE | 2023-12-28 01:14 | XR_ITS ---
PROCEDURE INFORMATION: Exam: XR Chest Exam date and time: 12/28/2023 1:28 AM Age: 33 years old Clinical indication: Pain; Chest pressure; Additional info: Cp TECHNIQUE: Imaging protocol: Radiologic exam of the chest. Views: 1 view. COMPARISON: CT ANGIO CHEST 04/29/2023 4:14 PM FINDINGS: Lungs: No evidence of acute pulmonary disease or infiltrates Pleural spaces: No large effusion or pneumothorax. Heart/Mediastinum: No evidence of mediastinal widening or cardiac silhouette enlargement; the mediastinum and heart appear within normal limits for contour and size. Bones/joints: No evidence of acute osseous abnormalities within the visualized portions of the thoracic spine and ribs. Osseous structures appear appropriate for patient age. IMPRESSION: No dense parenchymal consolidation, pleural effusion, or pneumothorax.
[2023-12-28 01:21] LABS: Basophils # 0.1 K/mm3 (0-0.2); Basophils % 1.2 % (0.1-2.0); Eosinophils # 0.1 K/mm3 (0.0-0.4); Eosinophils % 0.8 % (0.1-12.0); Hematocrit 37.5 % (37.0-47.0); Hemoglobin 12.4 g/dL (12.2-16.2); Lymphocytes # 4.3 K/mm3 (0.7-4.5); Mean Corpuscular HGB Conc 32.9 g/dL (31.8-35.4); Mean Corpuscular Hemoglobin 29.8 pg (27.0-31.2); Mean Corpuscular Volume 90.5 fl (81-99); Mean Platelet Volume 9.4 fl (7.4-10.4); Monocytes # 0.6 K/mm3 (0.1-1.0); Monocytes % 5.1 % (1.7-9.3); Neutrophils # 6.8 K/mm3 (1.8-7.8); Neutrophils % 56.8 % (37.0-80.0); Platelet Count 332 K/mm3 (142-424); Red Blood Count 4.14 M/mm3 (4.20-5.40); Red Cell Distribution Width 13.5 % (11.5-17.5)
[2023-12-28 01:30] LABS: HCG Qualitative, Serum Negative (Negative)
[2023-12-28 01:31] LABS: Alanine Aminotransferase 22 U/L (12-78); Albumin Level 4.6 g/dl (3.5-5.0); Albumin/Globulin Ratio 1.5 (1.1-1.8); Alkaline Phosphatase 75 U/L (38-126); Anion Gap 11.4 mEq/L (5-15); Aspartate Amino Transferase 24 U/L (14-36); Bilirubin,Total 0.5 mg/dl (0.2-1.3); Blood Urea Nitrogen 11 mg/dl (7-17); Calcium 9.2 mg/dl (8.4-10.2); Carbon Dioxide 27 mmol/L (22.0-30.0); Chloride 107 mmol/L (98-107); Creatinine Clearance Estimated 128 mL/min (50-200); Estimated Glomerular Filt Rate 71 ml/min (>60); GFR (African American) 86 ML/MIN (>60); Glucose 125 mg/dl (74-100); Potassium 3.4 mmoL/L (3.5-5.1); Sodium 142 mmol/L (136-145); Total Protein,Serum 7.6 g/dl (6.3-8.2)
[2023-12-28 01:36] LABS: D-Dimer 0.46 ug/mL (0.0-0.5)
[2023-12-28 01:43] LABS: Troponin I < 0.01 ng/ml (0.00-0.034)
[2023-12-28 01:43] LABS: Strep Scrn Group A (Rapid) Negative (Negative)
[2023-12-28 02:11] VITALS: BP 149/84; PULSE 84; RESP 16; TEMP 36.6; O2SAT 100
== END 2023-12-28 02:12 | disposition home or self-care (01) ==
PROVIDERS: Emergency Provider Emergency Medicine
DX: R07.9 Chest pain, unspecified (principal); R07.0 Pain in throat; M25.511 Pain in right shoulder; I10 Essential (primary) hypertension; F41.1 Generalized anxiety disorder; F17.290 Nicotine dependence, other tobacco product, uncomplicated
CPT/HCPCS: 71045; 80053; 84484; 84703; 85025; 85378; 87430; 93005; 99284

== ENCOUNTER 2024-01-03 14:08 | Outpatient (CLI) | payer BC, SELFPAY ==
[2024-01-03 20:24] LABS: 25-OH Vitamin D, Total 51.1 ng/mL (30-100)
[2024-01-03 20:25] LABS: Free Thyroxine Index 2.4 ug/dL (5.93-13.13); T4 (Thyroxine) 7.7 ug/dl (5.53-11.0); Triiodothryronine (T3) Uptake 31 % (23.5-40.5)
[2024-01-03 20:38] LABS: Thyroid Stimulating Hormone 3.75 uIU/mL (0.465-4.68)
[2024-01-03 20:55] LABS: Vitamin B12 352 pg/mL (239-931)
== END 2024-01-03 23:59 | disposition home or self-care (01) ==
LOC: LAB.DROPOF 01-04 14:09
PROVIDERS: Visit Provider Family Medicine
DX: F41.9 Anxiety disorder, unspecified (principal); G62.9 Polyneuropathy, unspecified; E11.9 Type 2 diabetes mellitus without complications; Z79.899 Other long term (current) drug therapy
CPT/HCPCS: 82306; 82607; 84436; 84443; 84479

== ENCOUNTER 2024-01-11 08:45 | Outpatient (CLI) | payer BC, SELFPAY ==
[2024-01-11 09:19] LABS: Basophils # 0.1 K/mm3 (0-0.2); Basophils % 1.1 % (0.1-2.0); Eosinophils # 0.1 K/mm3 (0.0-0.4); Eosinophils % 0.6 % (0.1-12.0); Hematocrit 36.5 % (37.0-47.0); Hemoglobin 12.3 g/dL (12.2-16.2); Lymphocytes # 2.4 K/mm3 (0.7-4.5); Mean Corpuscular HGB Conc 33.6 g/dL (31.8-35.4); Mean Corpuscular Hemoglobin 29.9 pg (27.0-31.2); Mean Platelet Volume 9.3 fl (7.4-10.4); Monocytes # 0.6 K/mm3 (0.1-1.0); Monocytes % 6.1 % (1.7-9.3); Neutrophils # 6.8 K/mm3 (1.8-7.8); Neutrophils % 68.1 % (37.0-80.0); Platelet Count 361 K/mm3 (142-424); Red Cell Distribution Width 13.5 % (11.5-17.5)
[2024-01-11 09:58] LABS: Alanine Aminotransferase 20 U/L (12-78); Albumin Level 4.6 g/dl (3.5-5.0); Albumin/Globulin Ratio 1.6 (1.1-1.8); Alkaline Phosphatase 74 U/L (38-126); Anion Gap 11.5 mEq/L (5-15); Aspartate Amino Transferase 23 U/L (14-36); Bilirubin,Total 0.5 mg/dl (0.2-1.3); Blood Urea Nitrogen 14 mg/dl (7-17); Calcium 9.9 mg/dl (8.4-10.2); Carbon Dioxide 26 mmol/L (22.0-30.0); Chloride 106 mmol/L (98-107); Estimated Glomerular Filt Rate 82 ml/min (>60); GFR (African American) 99 ML/MIN (>60); Globulin 2.8 g/dL (1.3-3.2); Glucose 89 mg/dl (74-100); Potassium 4.5 mmoL/L (3.5-5.1); Sodium 139 mmol/L (136-145); Total Protein,Serum 7.4 g/dl (6.3-8.2)
[2024-01-11 10:16] LABS: HCG,Quantitative < 2 mIU/ml (0-5.42)
== END 2024-01-11 23:59 | disposition home or self-care (01) ==
LOC: LAB 08:45
PROVIDERS: PCP Internal Medicine; Visit Provider Nurse Practitioner Obstetrics & Gynecology
DX: N92.1 Excessive and frequent menstruation with irregular cycle (principal)
CPT/HCPCS: 36415; 80053; 84702; 85025; 86850

== ENCOUNTER 2024-01-17 08:49 | Observation (INO) | payer BC, SELFPAY ==
[2024-01-15 11:59] VITALS: BMI 35.3
[2024-01-17] VITALS (18 sets, daily range): BP systolic 110–159; BP diastolic 51–89; PULSE 72–102; RESP 16–20; TEMP 34.6–37.1; O2SAT 95–100; BMI 35.2
[2024-01-17] MEDS: LACTATED RINGERS 1000ML 1,000 ML 25 ML IV (06:36)
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
[2024-01-17] MEDS: ROPIVACAINE 0.5% 30ML VIAL 300 MG (08:11)
[2024-01-17] MEDS: LIDOCAINE 1% W/EPI 1:100,000 20ML VIAL 40 ML (08:11)
[2024-01-17] MEDS: SODIUM CHLORIDE IRRIG SOLUTION 3,000 ML 999 ML IR (08:24)
[2024-01-17] MEDS: MEPERIDINE 50MG/ML 1ML SYRINGE 50 MG (09:45)
--- NOTE | 2024-01-17 09:54 | EXP.ANES.I ---
[facility] Anesthesia Record Part I Anesthesia Record I Intake, IV Amount: 1,300 Hydration: Adequate Estimated blood loss (mL): 150 Urine output (mL): 100 Blood Products used (#): none Blood Pressure: 139/82 SaO2: 100 Pulse Rate: 95 Airway Patency: Patent Respiratory Rate: 18 Temperature: 96.3 F Patient is:: Awake (Talking) and Stable Stable to PACU at:: 09:49
[2024-01-17] MEDS: ONDANSETRON 4MG/2ML VIAL 4 MG IV ×2 (10:00→16:03)
[2024-01-17] MEDS: HYDROMORPHONE 2MG/ML SYRINGE 0.299999999999999989 MG IV (10:14)
--- NOTE | 2024-01-17 10:37 | SUR.PHASEI ---
1023- Ddetailed report called to emiliano mills in OB 1025- Pt left in stable condition with emiliano mills in pt room. Vss, dressings CDI, family at bedside.
[2024-01-17 10:52] LABS: Microscopic,Cath URINE MICROSCOPIC (MICROSCOPIC)
[2024-01-17] MEDS: PROMETHAZINE HCL 25MG/ML 1ML VIAL 12.5 MG IV ×2 (11:10→17:32)
[2024-01-17] MEDS: SODIUM CHLORIDE 0.9% 25ML BAG 25 ML IV ×2 (11:10→17:32)
[2024-01-17 11:46] LABS: Appearance,Urine/Cath CLEAR (Clear); Bilirubin,Cath Negative (Negative); Blood, Urine/Cath Negative (Negative); Color,Urine/Cath YELLOW (Yellow); Glucose,Urine/Cath (UA) Negative (Negative); Ketones,Urine/Cath Negative (Negative); Leukocyte Esterase,Cath Negative (Negative); Nitrate,Cath Negative (Negative); Protein,Urine/Cath TRACE (Negative); Specific Gravity, Urine/Cath >= 1.030 (1.005-1.030); Urobilinogen,Cath 0.2 EU/dl (0.2)
--- NOTE | 2024-01-17 11:46 | P.OP_ITS ---
Date of procedure: 01/17/24 Pre-op Diagnosis:: Menorrhagia, pelvic pain, dyspareunia Post-op Diagnosis:: Menorrhagia, pelvic pain, dyspareunia, adhesions of fallopian tubes to anterior abdominal wall. Procedure performed:: Laparoscopically assisted vaginal hysterectomy, bilateral salpingectomy, lysis of adhesions Surgeon:: Fabian Freire MD Label Designer(s):: Dr. Mujica MEDICAL DEVICE SALES CONSULTANT:: Vy Adamson Anesthesia: GETA Estimated blood loss (mL): 150 Clinical Note:: She is a 33-year-old lady who complains of severe pain with her periods as well as very heavy periods. She had pain with intercourse as well. She had a previous tubal ligation. Operative findings:: She had an anteverted bulky uterus. She had evidence of tubal occlusion with Filshie clips. On the right side the tube was tented up and adherent to the anterior abdominal wall. On the left side there were filmy adhesions to the anterior abdominal wall from the anterior uterus. There was no evidence of endometriosis. Operative note:: She was taken to the operating room where general anesthesia was found be adequate. She was prepped and draped in normal sterile fashion in the semilithotomy position. A weighted speculum was placed in the vagina and the anterior lip of the cervix was grasped with a tenaculum. An acorn uterine manipulator was then placed wit hin the cervical os. I then changed gloves. I injected 10 cc of 0.5% ropivacaine around the umbilicus and made a small incision within the umbilicus. I inserted a Veress needle into the abdominal c avity. The abdominal cavity was then insufflated with carbon dioxide gas to a pressure of 20 mmHg. I then inserted an 11 mm trocar under direct vision. I injected through and through the pubic hairline, made a small incision here and inserted a 5 mm trocar under direct vision. I identified the inferior epigastric arteries on the left side, went lateral to these and injected through and through. I then made a small incision and inserted an 11 mm trocar under direct vision. A similar 11 mm trocar was placed on the right side. The right tube was tented up and adherent to the anterior abdominal wall and this was taken down with harmonic scalpel. There were thin adhesions on the left side of the uterus to the anterior abdominal wall and these were also taken down with harmonic scalpel. The left round ligament was then grasped and cut through with harmonic scalpel. This was followed by opening up the peritoneum anteriorly to the midline. I then grasped the tube on the left side and cut through this. This is followed by cutting through the left utero-ovarian ligament. I used Harmonic scalpel on the coagulation mode. I then took down the posterior aspect of the broad ligament to the level of the uterosacral ligament. I then skeletonized the uterine arteries on the left side and placed hemoclips on these. Using the harmonic scalpel on coagulation mode adjacent to the cervix I then took down these uterine arteries. I then further freed up the bladder anteriorly and laterally on the left side. I then turned my attention to the right side where I grasped the right round ligament. I then cut through the right round ligament. I then took down the anterior peritoneum to the midline joining up with the other side. I further dissected the bladder off. The posterior aspect of the right broad ligament was then taken down with harmonic scalpel. I skeletonized the uterine arteries on the right side. I applied hemoclips to the uterine arteries and staying adjacen t to the cervix on the right side I took down the uterine arteries with harmonic scalpel on coagulation mode. I further freed up the bladder. We then assured hemostasis. I then grasped the distal end of the right tube and using harmonic scalpel I cut along the mesosalpinx. The tube was placed in the cul-de-sac to be removed at the time of the vaginal portion of the surgery. This was similarly performed on the patient's left side. After once again assuring hemostasis we then turned our attention to the vaginal portion of the surgery. The patient was placed in the lithotomy position and a weighted speculum was placed in the vagina. The anterior and posterior lip of the cervix were grasped with Ryan tenacula. I then injected 20 cc of 1% Xylocaine with epinephrine circumferentially about the cervix. I then circumscribed the cervix. I opened up in the posterior cul-de-sac using Birch scissors. I then placed a long weighted speculum through the defect. I retrieved the fallopian tubes at this time. The left uterosacral ligament was then clamped cut and suture-ligated and tagged. This was followed by the left cardinal ligament which was clamped cut and suture-ligated. I then clamped cut and suture-ligated and tagged the right uterosacral ligament. This was followed by the right cardinal ligament which was clamped cut and suture-ligated. I then grasped the anterior vaginal mucosa and using both sharp and blunt dissection dissected off the bladder. I then opened sharply into the anterior cul-de-sac. A Darius retractor was placed through this defect. Both left and right uterine arteries were then clamped cut and suture-ligated. This freed up the uterus and it was removed through the vagina. Then inserted a short weighted speculum. Posterior cuff was then closed using running 2-0 Vicryl suture in a locked fashion. I then lysed a Larson suture using 0 PDS. I passed it through the vagina and the peritoneum and then through the left perirectal fascia. I then plicated across the posterior peritoneum and through the right perirectal fascia. This was then passed through the peritoneum and vagina and left to be tied at the end. I then grasped the ante rior peritoneum and using 2-0 PDS suture in a pursestring fashion I closed the peritoneum. The vaginal cuff was then closed using running 0 Vicryl suture in a locked fashion from left to right from anterior to posterior. A Sands cath was then placed in the bladder. Clear urine was seen to flow. I then changed gloves and once again insufflated the abdominal cavity with carbon dioxide gas. Hemostasis was once again assured and I rinsed the pelvis. I then sprayed powdered Surgicel all around the pelvis. I injected approximately 20 cc of 0.5% ropivacaine into the pelvis. I let the gas out of the abdomen and once again hemostasis was assured. The secondary trochars were then removed under direct vision and the sites were hemostatic. The primary trocar and camera were removed together. No bowel was seen to follow. The 11 mm trocar sites were closed deeply with [id number] 2-0 Vicryl suture followed by running subcuticular 4-0 Monocryl suture. 5 mm trocar site was closed with subcuticular 4-0 Monocryl suture. Sterile dressings were applied. The patient tolerated procedure well and was taken to the recovery room in excellent condition. All sponge instrument and needle counts were correct. The estimated blood loss was approximately 150 cc. Condition: stable Disposition: PACU Specimens:: Uterus and fallopian tubes Complications:: None
[2024-01-17 11:58] LABS: Bacteria,Urine/Cath TRACE /lpf; WBC,Urine/Cath Occasional #/hpf (0-3)
--- NOTE | 2024-01-17 12:00 | PC.NURSE ---
Pt given clear liquid diet, patient states she is hungry and doesnt want tray she wants actual food Discussed the risks post surgery. Patient rolled eyes and continues to state she was nauseated and hungry. Patient significant other present and reports she already has been eating cashews. Encouraged jello and broth due to complaints of nausea.
--- NOTE | 2024-01-17 12:25 | P.PNANES_ITS ---
[facility] Anesthesia Record Part II Anesthesia Record Part II Discharge Time: 10:04 Destination: Surgical Day Care (OP Surgery) PACU nurse assessment reviewed?: Yes Patient Condition:: Good Anesthesia Complications:: None Swallowing reflex intact?: Yes Airway Patency: Patent Cyanosis?: No Blood Pressure: 133/73 SaO2: 98 Respiratory Rate: 18 Pulse Rate: 86 Temperature: 96.3 F Mental Status: Alert & Oriented Pain level:: 0 Nausea and/or vomitting:: None Intake, IV Amount: 1,300 Hydration: Adequate
[2024-01-17] MEDS: KETOROLAC 30MG/ML VIAL 30 MG IV ×2 (14:41→20:45)
[2024-01-17] MEDS: TRAMADOL 50MG TABLET 50 MG PO (14:42)
[2024-01-17] MEDS: ACETAMINOPHEN 500MG TAB 1000 MG PO ×2 (14:42→20:45)
[2024-01-17] MEDS: LACTATED RINGERS 1000ML 1,000 ML 125 ML IV (14:43)
[2024-01-17] MEDS: SENNOSIDES 8.6MG/DOCUSATE 50MG TABLET 1 TAB PO (14:43)
--- NOTE | 2024-01-17 14:50 | PC.NURSE ---
notified of pt being non-compliant with care (refusing vitals, refusing scuds, demanding to go home, refusing to have catheter re-inserted if unable to void, Nicotine Patch, etc). States will be here to see pt after office hours and to offer her some Lorazepam and another Nicotine patch. Repeated and verified.
--- NOTE | 2024-01-17 15:00 | PC.NURSE ---
Pt sitting in chair, this nurse explained we needed to continue vitals post op but patient is refusing at this time, patient did allow me to take one final set then stated I aint sitting in that bed. Nurse brought patient pitcher of sweet tea due to patient stating thats all she will drink. Patient uncooperative with nurse suggestions for comfort such as using SCUDS, warm blanket to abdomen, and resting in bed. Pt also hasnt voided but states I will not allow a catheter to be reinserted if needed. Will notify
[2024-01-17] MEDS: CEFAZOLIN SODIUM 1 GM in 0.9 % SODIUM CHLORIDE 50 ML IV ×2 (15:58→23:00)
--- NOTE | 2024-01-17 16:07 | PC.NURSE ---
here to see pt.
--- NOTE | 2024-01-17 16:14 | PC.NURSE ---
Verbal order received from for H/H now. R/V.
[2024-01-17 16:36] LABS: Hemoglobin 11.2 g/dL (12.2-16.2)
--- NOTE | 2024-01-17 17:10 | PC.NURSE ---
Pt in bed, Respiration even and unlabored. H/H resulted and WNL. Patient tolerating liquids. Ambulatory. Patient has voided. 4 abdominal sites are WNL, no signs of infection or drainage. Educated patient to walk this evening to help with gas pain, patient VU. Denies any concerns at this time
[2024-01-17] MEDS: HYDROMORPHONE 2MG/ML SYRINGE 1 MG IV (17:22)
--- NOTE | 2024-01-17 18:18 | PC.NURSE ---
Pt sitting up on side of bed upon entering room. Reports 'feeling better . Has just ambulated to bathroom to void. Denies problems with ambulation or voiding. Family member x1 at bs (pt's mother). IV LR restarted at 125ml/hr.
--- NOTE | 2024-01-17 18:31 | PC.NURSE ---
All patient care and charting performed under my supervision.
[2024-01-17] MEDS: SODIUM CHLORIDE 0.9% 10ML FLUSH SYRINGE 10 ML IV ×2 (20:45→23:00)
[2024-01-18] VITALS: BP 123/71; PULSE 94; RESP 16; TEMP 37.1; O2SAT 96
[2024-01-18 04:00] VITALS: BP 143/74; PULSE 79; RESP 17; TEMP 37; O2SAT 97
[2024-01-18] MEDS: SODIUM CHLORIDE 0.9% 10ML FLUSH SYRINGE 10 ML IV (04:29)
[2024-01-18] MEDS: ACETAMINOPHEN 500MG TAB 1000 MG PO (04:29)
[2024-01-18] MEDS: KETOROLAC 30MG/ML VIAL 30 MG IV (04:30)
--- NOTE | 2024-01-18 04:37 | PC.NURSE ---
pt has slept well throughout the night and has not required any prn pain medications and pain has been tolerable with acetaminophen and torodol. Pt has walked the unit several times with no assistance. bowels active in all quads, pt reports very minimal vaginal bleeding. output has been good throughout shift. lungs clear throughout. iv patent and saline locked at this time. surgical sights remain unchanged throughout shift with minimal drainage noted to surgical dressings.vitals remain stable throughout shift. cb remains in reach.
[2024-01-18 06:57] LABS: Basophils # 0.1 K/mm3 (0-0.2); Basophils % 0.4 % (0.1-2.0); Eosinophils # 0.1 K/mm3 (0.0-0.4); Eosinophils % 0.3 % (0.1-12.0); Hematocrit 34.6 % (37.0-47.0); Hemoglobin 11.3 g/dL (12.2-16.2); Lymphocytes # 3.8 K/mm3 (0.7-4.5); Lymphocytes % 24.9 % (10-50); Mean Corpuscular HGB Conc 32.8 g/dL (31.8-35.4); Mean Corpuscular Hemoglobin 29.6 pg (27.0-31.2); Mean Corpuscular Volume 90.3 fl (81-99); Mean Platelet Volume 9.8 fl (7.4-10.4); Monocytes # 1.2 K/mm3 (0.1-1.0); Monocytes % 8.1 % (1.7-9.3); Neutrophils # 10.1 K/mm3 (1.8-7.8); Neutrophils % 66.3 % (37.0-80.0); Platelet Count 298 K/mm3 (142-424); Red Blood Count 3.84 M/mm3 (4.20-5.40); Red Cell Distribution Width 13.2 % (11.5-17.5); White Blood Count 15.3 K/mm3 (4.8-10.8)
[2024-01-18 06:58] LABS: MANUAL DIFFERENTIAL MANUAL DIFFERENTIAL (MANUAL DIFF)
[2024-01-18 07:11] LABS: Anion Gap 13.9 mEq/L (5-15); Blood Urea Nitrogen 10 mg/dl (7-17); Calcium 8.9 mg/dl (8.4-10.2); Carbon Dioxide 26 mmol/L (22.0-30.0); Chloride 103 mmol/L (98-107); Creatinine Clearance Estimated 149 mL/min (50-200); Estimated Glomerular Filt Rate 82 ml/min (>60); GFR (African American) 99 ML/MIN (>60); Glucose 102 mg/dl (74-100); Potassium 3.9 mmoL/L (3.5-5.1); Sodium 139 mmol/L (136-145)
[2024-01-18 07:47] LABS: Lymphocytes % 24 % (10-50); Monocytes % 2 % (2-9); Neutrophils % 74 % (42-76); Platelet Estimate Normal; RBC Morphology Normal; Total Cells Counted 100
[2024-01-18 08:50] VITALS: BP 148/83; PULSE 79; RESP 17; TEMP 37; O2SAT 100
[2024-01-18] MEDS: BISOPROLOL 5MG TABLET 5 MG PO (08:53)
[2024-01-18] MEDS: CHOLECALCIFEROL 1,000 UNITS (25MCG) TABLET 50 MCG PO (08:53)
[2024-01-18] MEDS: VENLAFAXINE XR 75MG CAPSULE 75 MG PO (08:53)
[2024-01-18] MEDS: ENOXAPARIN 40MG/0.4ML SYRINGE 40 MG SQ (08:53)
[2024-01-18] MEDS: POTASSIUM CHLORIDE 10MEQ CAPSULE.ER 10 MEQ PO (08:53)
--- NOTE | 2024-01-18 11:11 | P.DS_ITS ---
General Admission date:: 01/17/24 Discharge date: 01/18/24 HPI HPI HPI: Kayli Hooper is a 33-year-old who presented for a scheduled hysterectomy secondary to abnormal uterine bleeding, menorrhagia, dysmenorrhea, and dyspareunia. Dr. Freire suspected adenomyosis. Hospital Course Hospital Course Hospital Course: Kayli Hooper is a 33-year-old who is postop day #1 from a laparoscopic assisted vaginal hysterectomy with bilateral salpingectomy. This morning the patient is doing very well and sitting up in the chair after finishing her breakfast. She reports that she has passed gas. She is ambulating, voiding, and tolerating p.o. without difficulty or dysuria. The patient desires discharge home this mor chidi. She has no questions or concerns. We did discuss her allergy list in detail and the patient reports that hydrocodone she is severely allergic to but oxycodone just caused her to be nauseous. Discussed taking this medication with food. We will also send Zofran for her. Patient will be sent home with oxycodone as well as tramadol for pain management in case she is unable to take the oxycodone. All questions and concerns were addressed Exam Data for Last 24 hours Vital signs and Labs for Last 24 Hours: Temp Pulse Resp BP Pulse Ox O2 Del Method 98.6 F 79 17 148/83 H 100 Room Air 01/18/24 08:50 01/18/24 08:50 01/18/24 08:50 01/18/24 08:50 01/18/24 08:50 01/18/24 09:00 Laboratory Results - last 24 hr 01/17/24 16:25: Hgb 11.2 L, Hct 34.0 L 01/17/24 : Urine Color Yellow, Urine Appearance Clear, Urine pH 6.0, Ur Specific [place] >= 1.030, Urine Protein Trace, Urine Glucose (UA) Negative, Urine Ketones Negative, Urine Blood Negative, Urine Nitrate Negative, Urine Bilirubin Negative, Urine Urobilinogen 0.2, Ur Leukocyte Esterase Negative, Urine RBC None, Urine WBC Occasional, Ur Squamous Epith Cells None, Urine Bacteria Trace 01/18/24 06:17: WBC 15.3 H, RBC 3.84 L, Hgb 11.3 L, Hct 34.6 L, MCV 90.3, MCH 29.6, MCHC 32.8, RDW 13.2, Plt Count 298, MPV 9.8, Neut % (Auto) 66.3, Lymph % (Auto) 24.9, [place] % (Auto) 8.1, Eos % (Auto) 0.3, Baso % (Auto) 0.4, Neut # (Auto) 10.1 H, Lymph # (Auto) 3.8, [place] # (Auto) 1.2 H, Eos # (Auto) 0.1, Baso # (Auto) 0.1, Total Counted 100, Neutrophils % (Manual) 74, Lymphocytes % (Manual) 24, Monocytes % (Manual) 2, Platelet Estimate Normal, RBC Morphology Normal, Sodium 139, Potassium 3.9, Chloride 103, Carbon Dioxide 26, Anion Gap 13.9, BUN 10, Creatinine 0.80, Estimated Creat Clear 149, Estimated GFR 82, Est GFR ( Amer) 99, Glucose 102 H, Calcium 8.9 I & O for Last 24 hours: Intake & Output 01/15/24 01/16/24 01/17/24 01/18/24 23:59 23:59 23:59 23:59 Intake Total 2600 / 2600 Output Total 150 / 150 Balance 2450 / 2450 Weight 212 lb 0.015 oz 212 lb Constitutional Constitutional: no acute distress *Routine HEENT Exam Head: Present normocephalic Eye: Present EOMI and PERRL ENT: Present mucous membranes moist *Routine Neck Exam Neck: Present supple; Absent lymphadenopathy *Routine Respiratory Exam Respiratory: Present CTA bilaterally *Routine Cardiovascular Exam Cardiovascular: Present RRR *Routine Abdominal Exam Abdominal: Present soft and normoactive bowel sounds; Absent tenderness *Routine Extremities Exam Extremities: Absent cyanosis, clubbing or edema *Routine Skin Exam Skin: Present warm; Absent rash *Routine Neurological Exam Neurological: Present alert and oriented X3 Results Data Completed and Pending Labs on day of discharge: Labs from last 24 hours 01/18/24 01/17/24 01/17/24 06:17 Unknown 16:25 WBC 15.3 H RBC 3.84 L Hgb 11.3 L 11.2 L Hct 34.6 L 34.0 L MCV 90.3 MCH 29.6 MCHC 32.8 RDW 13.2 Plt Count 298 MPV 9.8 Neut % (Auto) 66.3 Lymph % (Auto) 24.9 [place] % (Auto) 8.1 Eos % (Auto) 0.3 Baso % (Auto) 0.4 Neut # (Auto) 10.1 H Lymph # (Auto) 3.8 [place] # (Auto) 1.2 H Eos # (Auto) 0.1 Baso # (Auto) 0.1 Total Counted 100 Neutrophils % (Manual) 74 Lymphocytes % (Manual) 24 Monocytes % (Manual) 2 Platelet Estimate Normal RBC Morphology Normal Sodium 139 Potassium 3.9 Chloride 103 Carbon Dioxide 26 Anion Gap 13.9 BUN 10 Creatinine 0.80 Estimated Creat Clear 149 Estimated GFR 82 Est GFR ( Amer) 99 Glucose 102 H Calcium 8.9 Urine Color Yellow Urine Appearance Clear Urine pH 6.0 Ur Specific [place] >= 1.030 Urine Protein Trace Urine Glucose (UA) Negative Urine Ketones Negative Urine Blood Negative Urine Nitrate Negative Urine Bilirubin Negative Urine Urobilinogen 0.2 Ur Leukocyte Esterase Negative Urine RBC None Urine WBC Occasional Ur Squamous Epith Cells None Urine Bacteria Trace DS: Diagnosis Discharge Diagnosis (1) Menorrhagia: Status: Acute Code(s): N92.0 - Excessive and frequent menstruation with regular cycle Qualifiers: Menorrhagia type: with irregular cycle Qualified Code(s): N92.1 - Excessive and frequent menstruation with irregular cycle Problem details: Postop day 1 from an LAVH bilateral salpingectomy Doing well Follow-up with Dr. Freire for postop visit (2) Dyspareunia: Status: Acute (3) Dysmenorrhea: Status: Acute Code(s): N94.6 - Dysmenorrhea, unspecified (4) Status post hysterectomy: Status: Acute Code(s): Z90.710 - Acquired absence of both cervix and uterus Meds Home Medications and Allergies Home Medications Medication Instructions Recorded Confirmed Type cholecalciferol (vitamin D3) 125 125 mcg PO DAILY 90 days #90 caps 06/14/23 01/17/24 Rx mcg (5,000 unit) capsule potassium chloride 10 mEq 10 meq PO DAILY #30 caps 12/21/23 01/17/24 Rx capsule,extended release desvenlafaxine succinate 50 mg 50 mg PO DAILY #30 tabs 01/11/24 01/17/24 Rx tablet,extended release 24 hr (Pristiq) lorazepam 1 mg tablet 1 mg PO Q4-6H PRN panic attacks 01/11/24 01/17/24 Rx #20 tabs bisoprolol fumarate 5 mg tablet 5 mg PO DAILY 01/15/24 01/17/24 History acetaminophen 500 mg tablet 1,000 mg (2 x 500 mg) PO Q6H #60 01/18/24 Rx tabs ferrous sulfate 325 mg (65 mg 325 mg PO DAILY #30 tabs 01/18/24 Rx iron) tablet,delayed release ibuprofen 800 mg tablet 800 mg PO Q8H PRN pain #60 tabs 01/18/24 Rx ondansetron 4 mg disintegrating 4 mg PO Q8H #90 tabs 01/18/24 Rx tablet oxycodone 5 mg tablet 5 mg PO Q8H PRN pain #10 tabs 01/18/24 Rx sennosides 8.6 mg tablet (Senna 8.6 mg PO BIDP PRN Constipation 01/18/24 Rx Lax) #60 tabs simethicone 125 mg tablet 125 mg PO DAILY PRN abdominal 01/18/24 Rx distention #60 tabs tramadol 50 mg tablet 50 mg PO Q4HP PRN Moderate To 01/18/24 Rx Severe Pain (4-10) #10 tabs New Prescriptions to Start Prescriptions: tramadol Guan[place],Pascale acetaminophen Guanako,Pascale ferrous sulfate Guanako,Pascale ibuprofen [place],Pascale ondansetron Gu[place],Pascale oxycodone [place],Pascale sennosides [Senna Lax] [place]an[place],Pascale simethicone Gu[place],Pascale Allergies Allergy/AdvReac Type Severity Reaction Status Date / Time cefaclor [From CECLOR] Allergy Unknown Verified 01/17/24 06:37 hydrocodone [From NORCO] Allergy Unknown Verified 01/17/24 06:37 oxycodone [From Percocet] Allergy Verified 01/17/24 06:37 sulfamethoxazole Allergy Verified 01/17/24 06:37 [From Bactrim] trimethoprim [From Bactrim] Allergy Verified 01/17/24 06:37 Discharge Plan Disposition Patient Disposition: Home, Self-Care Condition: Good Follow up Plan Follow up with: Fabian Freire MD [Staff Physician] - 01/30/24 9:30 am Prescriptions/Medication Reconciliation: New tramadol 50 mg Tablet 50 mg PO Q4HP PRN (Reason: Moderate To Severe Pain (4-10)) Qty: 10 0RF acetaminophen 500 mg Tablet 1,000 mg PO Q6H Qty: 60 2RF sennosides [Senna Lax] 8.6 mg Tablet 8.6 mg PO BIDP PRN (Reason: Constipation) Qty: 60 2RF ibuprofen 800 mg tablet 800 mg PO Q8H PRN (Reason: pain) Qty: 60 2RF ferrous sulfate 325 mg (65 mg iron) tablet,delayed release (DR/EC) 325 mg PO DAILY Qty: 30 3RF oxycodone 5 mg tablet 5 mg PO Q8H PRN (Reason: pain) Qty: 10 0RF simethicone 125 mg tablet 125 mg PO DAILY PRN (Reason: abdominal distention) Qty: 60 2RF ondansetron 4 mg tablet,disintegrating 4 mg PO Q8H Qty: 90 0RF Continued cholecalciferol (vitamin D3) 125 mcg (5,000 unit) capsule 125 mcg PO DAILY 90 Days Qty: 90 3RF desvenlafaxine succinate [Pristiq] 50 mg tablet extended release 24 hr 50 mg PO DAILY Qty: 30 1RF lorazepam 1 mg tablet 1 mg PO Q4-6H PRN (Reason: panic attacks) Qty: 20 0RF potassium chloride 10 mEq capsule, extended release 10 meq PO DAILY Qty: 30 2RF bisoprolol fumarate 5 mg tablet 5 mg PO DAILY Patient Comments: TAKE 1 TABLET BY MOUTH ONCE DAILY Problem Reconciliation Problems Reviewed?: Yes Patient Discharge Instructions ACTIVITY: Ambulate as tolerated, Limited activity and No heavy lifting DIET: regular diet Additional Instructions: You had a laparoscopic assisted vaginal hysterectomy and bilateral salpingectomy. This means that your uterus, cervix, and fallopian tubes were removed. The top of your vagina is closed with dissolvable sutures. Removing your fallopian tubes decreases your lifetime risk of ovarian cancer. There were no complications during her surgery. We can review the details of your surgery, pathology, and images at your postop visit. You will follow-up in office for a postop visit at 1 weeks and at 6 weeks. At your 6-week postop appointment you will have a pelvic exam to ensure your cuff is healing well. Activity: - No lifting more than 10 lbs for 6 weeks. - No driving while you are taking narcotic pain medication. - You have four incisions on your abdomen that are closed with stitches. It is important to keep your incisions very clean. I recommend a shower every day to clean your incisions Wound care - You have stitches under your skin which will dissolve over the next 4-6 weeks as your body heals - Keep your wound clean and dry, ok to wash with soap and water but pat thoroughly dry Medications: - Ibuprofen (a nonsteroidal anti-inflammatory) for pain. Please take the ibuprofen scheduled for the first 2-3 days as this will help control your pain - Oxycodone (a narcotic pain medication) use the narcotic pain medication for breakthrough or severe pain. You will want to stop the narcotic pain medication first. Narcotic pain medication can be habit forming so please only use this medication if you need it. We discussed that you had an allergy to Percocet which causes you to have nausea. You elected to proceed with oxycodone and I also sent you some Zofran in case it caused you to have nausea. We discussed the similarities between Percocet and oxycodone. - Tramadol. This is also a pain medication which has a narcotic component. You should stop this medication first prior to the acetaminophen or ibuprofen. You should not drive while taking this medicine. - Senna (a stool softener) use this medication for constipation as needed. Narcotics can increase your risk for constipation - Simethicone: a gas medication for bloating and gas pain you may experience in the next 1-2 weeks. Please call the office or return to the ER if you have any of the followin. bleeding more than 1 pad an hour for 2 hours 2. pain that does not respond to your narcotic pain medication 3. dizziness or lightheadedness such that you lose consciousness 4. abnormal discharge that looks like pus from your incisions Questions or concerns: It is my privilege to be a part of your [employer] team. Please let me know if you have other questions or concerns. Pascale Mujica DO [facility] [place], [place] [address] Patient Instructions: DI for Hysterectomy, Surgical Site Infection, Hysterectomy -- Laparoscopic Surgery, DI for Vaginal Hysterectomy Providers Primary Care Provider: Beny Lou Admit Provider: Fabian Freire Attending Provider: Fabian Freire
== END 2024-01-18 10:59 | disposition home or self-care (01) ==
LOC: OB 08:50
PROVIDERS: Admitting Provider Nurse Practitioner Obstetrics & Gynecology; PCP Internal Medicine; Visit Provider Nurse Practitioner Obstetrics & Gynecology
PROC: 0UT9FZZ Resection of Uterus, Via Natural or Artificial Opening With Percutaneous Endoscopic Assistance (ICD-10-PCS; CPT 58550; principal; 2024-01-17 07:30)
DX: N92.0 Excessive and frequent menstruation with regular cycle (principal); N94.10 Unspecified dyspareunia
CPT/HCPCS: 58550; 36415; 80048; 81001; 85007; 85014; 85018; 85025; 86850; 96374; J3490; G0378; J2405

== ENCOUNTER 2024-02-01 09:46 | Outpatient (CLI) | payer BC, SELFPAY ==
--- NOTE | 2024-02-01 09:52 | US_ITS ---
FINAL REPORT CLINICAL HISTORY: ISTHMUS NODULE -- elizabeth valencia -- thyroid isthmus nodule -- FNA biopsy FINDINGS: ULTRASOUND GUIDED THYROID BIOPSY HISTORY: Thyroid isthmus nodule. ATTENDING PHYSICIAN: Dr. Terrence MD PHYSICIAN CASHIER: Trisha Maldonado PA-C PROCEDURE: Informed consent was obtained from the patient. A time out procedure was performed. Ultrasound was utilized to localize the dominant thyroid isthmus nodule. Patient was prepped and draped in the usual sterile fashion over the midline neck. 1% Lidocaine was utilized for local anesthesia. Four 25-gauge FNA passes were made of the thyroid isthmus nodule using ultrasound guidance. Tissue samples were placed in Cytolyt and sent to the lab for analysis. Patient tolerated the procedure well and left the department in good condition. IMPRESSION: Technically successful ultrasound-guided FNA of a dominant thyroid isthmus nodule, as described. Reviewed, Interpreted and Dictated by Rex Ocampo MD Transcribed by Trisha Maldonado PA-C Authenticated and [facility]
== END 2024-02-01 23:59 | disposition home or self-care (01) ==
LOC: RAD 09:47
PROVIDERS: PCP Internal Medicine; Visit Provider Otolaryngology
DX: E04.1 Nontoxic single thyroid nodule (principal)
CPT/HCPCS: 10005; 76536

== ENCOUNTER 2024-02-29 15:56 | Outpatient (CLI) | payer BC, SELFPAY ==
--- NOTE | 2024-02-29 15:57 | US_ITS ---
PROCEDURE INFORMATION: Exam: US Left Breast, Complete Exam date and time: 02/29/2024 3:52 PM Age: 33 years old Clinical indication: Breast pain; Left lower outer quadrant TECHNIQUE: Imaging protocol: Complete ultrasound of all four quadrants of the left breast and the retroareolar regions, including ultrasound of the axilla when performed. COMPARISON: No relevant prior studies available. FINDINGS: ULTRASOUND: Breast ultrasound findings: Sonographic images of the left breast including the retroareolar region, all 4 quadrants and the axilla do not demonstrate any solid or cystic masses. No architectural distortion or acoustical shadowing. No skin thickening or axillary adenopathy. IMPRESSION: Patient to return for diagnostic left mammogram for full evaluation of focal left breast pain. ASSESSMENT: BI-RADS Category 0: Incomplete- Need Additional Imaging Evaluation and/or Prior Mammograms for Comparison.
== END 2024-02-29 23:59 | disposition home or self-care (01) ==
LOC: RAD 15:57
PROVIDERS: PCP Internal Medicine; Referring Provider Nurse Practitioner Obstetrics & Gynecology; Visit Provider Nurse Practitioner Obstetrics & Gynecology
DX: N60.12 Diffuse cystic mastopathy of left breast (principal)
CPT/HCPCS: 76641

== ENCOUNTER 2024-05-30 07:42 | Emergency (ER) | payer SELFPAY ==
[2024-05-30] VITALS (7 sets, daily range): BP systolic 130–148; BP diastolic 83–92; PULSE 53–63; RESP 16–18; TEMP 36.7–37.1; O2SAT 97–100; BMI 33.3
--- NOTE | 2024-05-30 07:51 | ECG_ITS ---
APPROVED REPORT Exam: Resting ECG HR:65 bpm ECG Measurements Heart Rate 65 AXES TX 147 P 76 QRSd 102 QRS 68 QT 414 T 50 QTc 425 Conclusion SINUS RHYTHM WITH SINUS ARRHYTHMIA NORMAL ECG Electronically signed by : YAIMA PA, 05/30/2024 14:21:16
--- NOTE | 2024-05-30 07:52 | CT_ITS ---
FINAL REPORT TECHNIQUE: After the administration of intravenous contrast, axial images were obtained through the abdomen and pelvis by computed tomography. The study was performed with techniques to keep radiation dose as low as reasonably achievable, (ALARA). Individual dose reduction techniques using automated exposure control or adjustment of mA and/or kV according to the patient's size were employed. CLINICAL HISTORY: RUQ R flank pain prev [facility] COMPARISON: None FINDINGS: Abdomen: The lung bases are clear. The liver parenchyma is homogeneous. The gallbladder is surgically absent. The spleen, pancreas, adrenals and kidneys appear unremarkable. The aorta is normal in caliber. There is no free fluid or adenopathy. Pelvis: The appendix is normal. The urinary bladder is incompletely distended. Postoperative changes are noted in the pelvis. There is a small cyst or follicle on the left ovary measuring 1.4 cm. There is no free fluid or adenopathy. IMPRESSION: Small left ovary cyst or follicle. Reviewed, Interpreted and Dictated by Rex Ocampo MD Transcribed by Kristie Soto Authenticated and [facility]
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
[2024-05-30] MEDS: ACETAMINOPHEN 1,000MG/100ML VIAL 1000 MG IV (07:57)
[2024-05-30] MEDS: KETOROLAC 30MG/ML VIAL 30 MG IV (07:57)
[2024-05-30] MEDS: LACTATED RINGERS 1000ML 1,000 ML 999 ML IV (07:58)
[2024-05-30] MEDS: ONDANSETRON 4MG/2ML VIAL 4 MG IV (07:58)
[2024-05-30 08:13] LABS: Basophils # 0.1 K/mm3 (0-0.2); Basophils % 0.6 % (0.1-2.0); Eosinophils # 0.1 K/mm3 (0.0-0.4); Eosinophils % 1.1 % (0.1-12.0); Hematocrit 41.5 % (37.0-47.0); Hemoglobin 13.3 g/dL (12.2-16.2); Lymphocytes # 2.5 K/mm3 (0.7-4.5); Lymphocytes % 30.5 % (10-50); Mean Corpuscular HGB Conc 32.1 g/dL (31.8-35.4); Mean Corpuscular Hemoglobin 28.6 pg (27.0-31.2); Mean Corpuscular Volume 89.3 fl (81-99); Mean Platelet Volume 9.6 fl (7.4-10.4); Monocytes # 0.5 K/mm3 (0.1-1.0); Monocytes % 5.7 % (1.7-9.3); Neutrophils # 5.1 K/mm3 (1.8-7.8); Neutrophils % 62.1 % (37.0-80.0); Platelet Count 296 K/mm3 (142-424); Red Blood Count 4.65 M/mm3 (4.20-5.40); Red Cell Distribution Width 14.1 % (11.5-17.5); White Blood Count 8.1 K/mm3 (4.8-10.8)
[2024-05-30 08:14] LABS: Alanine Aminotransferase 21 U/L (12-78); Albumin Level 4.5 g/dl (3.5-5.0); Albumin/Globulin Ratio 1.4 (1.1-1.8); Alkaline Phosphatase 68 U/L (38-126); Anion Gap 8.4 mEq/L (5-15); Aspartate Amino Transferase 25 U/L (14-36); Bilirubin,Total 0.5 mg/dl (0.2-1.3); Blood Urea Nitrogen 13 mg/dl (7-17); Calcium 9.6 mg/dl (8.4-10.2); Carbon Dioxide 27 mmol/L (22.0-30.0); Chloride 108 mmol/L (98-107); Creatinine Clearance Estimated 125 mL/min (50-200); Estimated Glomerular Filt Rate 71 ml/min (>60); GFR (African American) 86 ML/MIN (>60); Globulin 3.2 g/dL (1.3-3.2); Glucose 97 mg/dl (74-100); Lipase 43 U/L (23-300); Potassium 4.4 mmoL/L (3.5-5.1); Sodium 139 mmol/L (136-145); Total Protein,Serum 7.7 g/dl (6.3-8.2)
--- NOTE | 2024-05-30 08:18 | PC.NURSE ---
pt to ct
[2024-05-30] MEDS: IOPAMIDOL-370 (76%);100ML BOTTLE 75 ML IV (08:24)
[2024-05-30] MEDS: SODIUM CHLORIDE 0.9% 10ML SYR (RAD ONLY) 10 ML IV (08:24)
[2024-05-30 08:37] LABS: Troponin I < 0.01 ng/ml (0.00-0.034)
[2024-05-30 08:38] LABS: Microscopic, Urine URINE MICROSCOPIC (MICROSCOPIC)
[2024-05-30 08:58] LABS: Appearance,Urine CLEAR (Clear); Bilirubin,Urine Negative (Negative); Blood, Urine Negative (Negative); Color,Urine YELLOW (Yellow); Glucose,Urine (UA) Negative (Negative); Ketones,Urine Negative (Negative); Leukocyte Esterase,Urine Negative (Negative); Nitrate,Urine Negative (Negative); Protein,Urine Negative (Negative); Urobilinogen,Urine 0.2 EU/dl (0.2)
--- NOTE | 2024-05-30 10:21 | PC.NURSE ---
dr sanchez at bedside updating pt
--- NOTE | 2024-05-30 10:21 | PC.NURSE ---
dr sanchez at bedside to update pt
[2024-05-30 10:53] LABS: HIV (1&2) Antibody Rapid NONREACTIVE (NONREACTIVE)
[2024-05-31 09:32] LABS: HCV Ab Non Reactive (Non Reactive)
== END 2024-05-30 10:37 | disposition home or self-care (01) ==
PROVIDERS: Emergency Provider Emergency Medicine; PCP Internal Medicine
DX: R10.11 Right upper quadrant pain (principal); R11.0 Nausea; I10 Essential (primary) hypertension; E03.9 Hypothyroidism, unspecified; F17.290 Nicotine dependence, other tobacco product, uncomplicated
CPT/HCPCS: 74177; 80053; 81001; 83690; 84484; 85025; 86803; 87389; 93005; 96361; 96374; 96375; 99285; J0131; J1885; J2405; J7120; Q9967

== ENCOUNTER 2024-06-02 17:19 | Emergency (ER) | payer SELFPAY ==
--- NOTE | 2024-06-02 17:17 | ECG_ITS ---
APPROVED REPORT Exam: Resting ECG HR:109 bpm ECG Measurements Heart Rate 109 AXES AL 128 P 61 QRSd 105 QRS 44 QT 352 T 53 QTc 416 Conclusion SINUS TACHYCARDIA NONSPECIFIC ST & T-WAVE ABNORMALITY ABNORMAL RHYTHM ECG Electronically signed by : JUNIOR MELCHOR, 06/02/2024 23:38:20
[2024-06-02 17:20] VITALS: BP 149/90; PULSE 110; RESP 16; TEMP 36.7; O2SAT 100; BMI 33.3
--- NOTE | 2024-06-02 17:22 | XR_ITS ---
PROCEDURE INFORMATION: Exam: XR Chest Exam date and time: 06/02/2024 5:33 PM Age: 33 years old Clinical indication: Shortness of breath; Sternal or substernal pain; Additional info: Palpitations TECHNIQUE: Imaging protocol: Radiologic exam of the chest. Views: 2 views. COMPARISON: CR XR CHEST PORTABLE 12/28/2023 1:28 AM FINDINGS: Lungs: No consolidation. Pleural spaces: No pleural effusion. No pneumothorax. Heart/Mediastinum: No cardiomegaly. Bones/joints: Unremarkable. IMPRESSION: No acute findings.
--- NOTE | 2024-06-02 17:27 | PC.NURSE ---
Dr. Austin at bedside for pt eval
[2024-06-02 17:31] LABS: Basophils # 0.1 K/mm3 (0-0.2); Basophils % 1.1 % (0.1-2.0); Eosinophils # 0.1 K/mm3 (0.0-0.4); Eosinophils % 1.2 % (0.1-12.0); Hematocrit 42.2 % (37.0-47.0); Hemoglobin 13.6 g/dL (12.2-16.2); Lymphocytes % 36.2 % (10-50); Mean Corpuscular HGB Conc 32.4 g/dL (31.8-35.4); Mean Corpuscular Hemoglobin 28.5 pg (27.0-31.2); Mean Corpuscular Volume 88.2 fl (81-99); Mean Platelet Volume 9.9 fl (7.4-10.4); Monocytes # 0.5 K/mm3 (0.1-1.0); Monocytes % 4.3 % (1.7-9.3); Neutrophils # 6.2 K/mm3 (1.8-7.8); Neutrophils % 57.2 % (37.0-80.0); Platelet Count 326 K/mm3 (142-424); Red Blood Count 4.78 M/mm3 (4.20-5.40); Red Cell Distribution Width 14.6 % (11.5-17.5); White Blood Count 10.9 K/mm3 (4.8-10.8)
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
[2024-06-02 17:43] LABS: Alanine Aminotransferase 24 U/L (12-78); Albumin Level 4.9 g/dl (3.5-5.0); Albumin/Globulin Ratio 1.4 (1.1-1.8); Alkaline Phosphatase 75 U/L (38-126); Anion Gap 10.4 mEq/L (5-15); Aspartate Amino Transferase 27 U/L (14-36); Bilirubin,Total 0.4 mg/dl (0.2-1.3); Blood Urea Nitrogen 13 mg/dl (7-17); Calcium 9.7 mg/dl (8.4-10.2); Carbon Dioxide 24 mmol/L (22.0-30.0); Chloride 107 mmol/L (98-107); Creatinine Clearance Estimated 125 mL/min (50-200); Estimated Glomerular Filt Rate 71 ml/min (>60); GFR (African American) 86 ML/MIN (>60); Globulin 3.5 g/dL (1.3-3.2); Glucose 118 mg/dl (74-100); Potassium 3.4 mmoL/L (3.5-5.1); Sodium 138 mmol/L (136-145); Total Protein,Serum 8.4 g/dl (6.3-8.2)
[2024-06-02] MEDS: LACTATED RINGERS 1000ML 1,000 ML 999 ML IV (17:44)
[2024-06-02] MEDS: LORazepam 1MG TABLET 1 MG PO (17:44)
[2024-06-02 18:00] VITALS: BP 146/85; PULSE 90; O2SAT 100
[2024-06-02 18:30] VITALS: BP 128/89; PULSE 80; O2SAT 100
[2024-06-02 18:30] LABS: Troponin I < 0.01 ng/ml (0.00-0.034)
[2024-06-02 18:33] LABS: D-Dimer 0.44 ug/mL (0.0-0.5)
[2024-06-02 19:33] LABS: HIV (1&2) Antibody Rapid NONREACTIVE (NONREACTIVE)
[2024-06-02 19:56] LABS: T4 (Thyroxine) 10.8 ug/dl (5.53-11.0)
[2024-06-02 20:09] LABS: Thyroid Stimulating Hormone 5.71 uIU/mL (0.465-4.68)
[2024-06-02 20:11] LABS: HCG Qualitative, Serum Negative (Negative)
[2024-06-02 20:28] VITALS: BP 135/83; PULSE 75; RESP 16; TEMP 36.8; O2SAT 98
[2024-06-02] MEDS: POTASSIUM CHLORIDE 20MEQ TAB 40 MEQ PO (20:32)
[2024-06-04 08:35] LABS: HCV Ab Non Reactive (Non Reactive)
== END 2024-06-02 20:32 | disposition home or self-care (01) ==
PROVIDERS: Emergency Provider Emergency Medicine; PCP Internal Medicine
DX: R07.9 Chest pain, unspecified (principal); F41.0 Panic disorder [episodic paroxysmal anxiety]; E87.6 Hypokalemia; R94.6 Abnormal results of thyroid function studies; R00.0 Tachycardia, unspecified
CPT/HCPCS: 71046; 80050; 80053; 84436; 84443; 84484; 84703; 85025; 85378; 86803; 87389; 93005; 96360; 99284; J7120

== ENCOUNTER 2024-07-02 12:50 | Outpatient (CLI) | payer SELFPAY ==
[2024-07-02 17:56] LABS: Triiodothryronine (T3) Uptake 34 % (23.5-40.5)
[2024-07-02 17:57] LABS: Free Thyroxine Index 2.3 ug/dL (5.93-13.13); T4 (Thyroxine) 6.8 ug/dl (5.53-11.0)
[2024-07-02 18:10] LABS: Thyroid Stimulating Hormone 2.86 uIU/mL (0.465-4.68)
[2024-07-04 08:21] LABS: Thyroid Peroxidase Antibodies 389 IU/mL (0-34)
== END 2024-07-02 23:59 | disposition home or self-care (01) ==
LOC: LAB.DROPOF 07-03 12:50
PROVIDERS: PCP Nurse Practitioner Psychiatric/Mental Health; Visit Provider Nurse Practitioner Psychiatric/Mental Health
DX: R53.83 Other fatigue (principal); Z00.00 Encounter for general adult medical examination without abnormal findings
CPT/HCPCS: 84436; 84443; 84479; 86376

== ENCOUNTER 2025-02-13 06:18 | Emergency (ER) | payer OTHER, SELFPAY ==
--- OUTSIDE RECORDS SUMMARY | 2025-02-08 14:09 | XMS_ITS | Continuity of Care Document ---
Author Organization [facility] Phone Care Team Providers Care Glass Carrier Name Role Phone JUSTYN LUJAN Admitting ROGER RODRIGUEZ Primary Care JUSTYN LUJAN Primary Attending JUSTYN LUJAN Unavailable ALLERGIES AND ADVERSE REACTIONS ALLERGIES AND ADVERSE REACTIONS Code System Allergy Substance Adverse Reaction Date Reaction (Severity) Comment Status Reported By Updated By 8015 RXNorm Ceclor Adverse reaction to substance Not Specified active [id number] on February 05, 2025 1:56:53 PM UTC 06355 RXNorm Bactrim Adverse reaction to substance Not Specified active [id number] on February 05, 2025 1:56:53 PM UTC [place] (Free Text Allergy) Adverse reaction to substance Not Specified active [id number] on February 05, 2025 1:56:53 PM UTC Percocet (Free Text Allergy) Adverse reaction to substance Not Specified active [id number] on February 05, 2025 1:56:54 PM UTC RESULTS Patient: CRISTIAN Guy Date of : [birth year] LABORATORY RESULTS ORDER 200: COMP METABOLIC PA LACHO (LOINC: 50962-5) ORDER DATE: February 05, 2025 1:50:00 PM UTC Specimen Source: Serum/Plasm a Specimen Type: Acellular blo od (serum or plasma) specimen PERFORMING LAB: [address] [id number] Result Comment: Final Result Date: February 05, 2025 2:28:00 PM UT (TECH: MRB) LOINC TEST FLAG RESULT REFERENCE RANGE UPDA SANDY BY 2951-2 Sodium [Moles/volume ] in Serum or Plasma N 137 mmol/L 136 mmol/L - 145 mmol/L February 05, 2025 2:28:00 PM UTC (TECH: MRB) 2823-3 Potassium [Moles/volume] in Serum or Plasma N 4.5 mmol/L 3.5 mmol/L - 5.1 mmol/L February 05, 2025 2:28:00 PM UTC (TECH: MRB) 2075-0 Chloride [Moles/volu me] in Serum or Plasma N 103 mmol/L 98 mmol/L - 107 mmol/L February 05, 2025 2:28:00 PM UTC (TECH: MRB) 8-9 Carbon dioxide, tota l [Moles/volume] in Serum or Plasma N 24 mmol/L 21 mmol/L - 32 mmol/L February 05, 2025 2:28:00 PM UTC (TECH: MRB) 05502-6 Anion gap 3 in Serum or Plasma N 10.0 February 05, 2025 2:28:00 PM UTC (TECH: MRB) 2345-7 Glucose [Mass/volume ] in Serum or Plasma H 119 mg/dL 70 mg/dL - 110 mg/dL February 05, 2025 2:28:00 PM UTC (TECH: MRB) 3094-0 Urea nitrogen [Mass/volume] in Serum or Plasma N 14 mg/dL 7 mg/dL - 18 mg/dL February 05, 2025 2:28:00 PM UT (TECH: MRB) 2160-0 Creatinine [Mass/volume] in Serum or Plasma N 0.9 mg/dL 0.6 mg/dL - 1.0 mg/dL February 05, 2025 2:28:00 PM UTC (TECH: MRB) 3097-3 Urea nitrogen/Creatinine [Mass Ratio] in Serum or Plasma N 15.6 9 - February 05, 2025 2:28:00 PM UTC (TECH: MRB) 47135-2 Glomerular filtratio n rate/1.73 sq M.predicted by Creatinine-based formula (MDRD) N 85 mL/min >60 February 05, 2025 2:28:00 PM UT (TECH: MRB) 90087-6 Osmolality of Serum or Plasma by calculated by sum of electrolytes N 287 mosm/kg 275 mosm/kg - 301 mosm/kg February 05, 2025 2:28:00 PM UTC (TECH: MRB) 0855-2 Protein [Mass/volume ] in Serum or Plasma N 7.3 g/dL 6.4 g/dL - 8.2 g/dL February 05, 2025 2:28:00 PM [facility] (TECH: MRB) 1751-7 Albumin [Mass/volume ] in Serum or Plasma N 3.8 g/dL 3.4 g/dL - 5.0 g/dL February 05, 2025 2:28:00 PM [facility] (TECH: MRB) 33446-7 Calcium [Mass/volume ] in Serum or Plasma N 8.9 mg/dL 8.5 mg/dL - 10.1 mg/dL February 05, 2025 2:28:00 PM [facility] (TECH: MRB) 43942-5 Calcium [Mass/volume ] corrected for total protein in Serum or Plasma N 9.1 mg/dL 8.5 mg/dL - 10.1 mg/dL February 05, 2025 2:28:00 PM [facility] (TECH: MRB) 1975-2 Bilirubin.total [Mass/volume] in Serum or Plasma N 0.5 mg/dL 0.4 mg/dL - 1.5 mg/dL February 05, 2025 2:28:00 PM [facility] (TECH: MRB) 1920-8 Aspartate aminotransferase [Enzymatic activity/volume] in Serum or Plasma N 25 U/L 15 U/L - 37 U/L February 05, 2025 2:28:00 PM [facility] (TECH: MRB) 1742-6 Alanine aminotransferase [Enzymatic activity/volume] in Serum or Plasma L 10 U/L 12 U/L - 78 U/L February 05, 2025 2:28:00 PM [facility] (TECH: MRB) 6768-6 Alkaline phosphatase [Enzymatic activity/volume] in Serum or Plasma N 83 U/L 50 U/L - 120 U/L February 05, 2025 2:28:00 PM [facility] (TECH: MRB) ORDER 300: MAGNESIUM (LOINC: 80691-6) ORDER DATE: February 05, 2025 1:50:00 PM [facility] Specimen Source: Serum/Plasm a Specimen Type: Acellular blo od (serum or plasma) specimen PERFORMING LAB: [address] [id number] Result Comment: Final Result Date: February 05, 2025 2:28:00 PM UTC (TECH: MRB) LOINC TEST FLAG [place] [address]-3 Magnesium [Mass/volume] in Serum or Plasma N 1.8 mg/dL 1.8 mg/dL - 2.4 mg/dL February 05, 2025 2:28:00 PM UT (TECH: MRB) ORDER 400: THYROID STIMULATI NG HORMONE (LOINC: 3016-3) ORDER DATE: February 05, 2025 1:51:00 PM UTC Specimen Source: Serum/Plasm a Specimen Type: Acellular blo od (serum or plasma) specimen PERFORMING LAB: [address] [id number] Result Comment: Final Result Date: February 05, 2025 2:47:00 PM UT (TECH: MRB) LOINC TEST FLAG RESULT REFERENCE RANGE UPDA SANDY BY 3016-3 Thyrotropin [Units/volume] in Serum or Plasma N 2.37 mIU/mL 0.34 mIU/mL - 4.80 mIU/mL February 05, 2025 2:47:00 PM UT (TECH: MRB) LABORATORY NARRATIVE RESULTS Information is not available RADIOLOGY RESULTS Information is not available PATHOLOGY NARRATIVE RESULTS Information is not available MICROBIOLOGY RESULTS No Micro Labs/Results Exist for Patient BLOOD ADMIN RESULTS Information is not available MEDICATIONS HOME MEDICATIONS Status RXNORM ND Medication Dose Route Frequency Dates Comments Reported By Updated By Active [id number] 24361 Viibryd 10 mg tablet 1.0 TAB ORAL DAILY Last Dose: Last Dose Unknown; [id number] on February 05, 2025 1:56:56 PM UT Active [id number] 197789 78170 lisinopril 10 mg tablet 1.0 TAB ORAL DAILY Last Dose: Last Dose Unknown; [id number] on February 05, 2025 1:56:57 PM [facility] Active [id number] 50167 lorazepam 1 mg tablet 1.0 TAB ORAL PRN Last Dose: Last Dose Unknown; [id number] on February 05, 2025 1:56:57 PM [facility] DISCHARGE MEDICATIONS Status RXNORM NDC Medication Dose Route Frequency Dates Comments Physician Updated By No Discharge Medication Info rmation Available INPATIENT MEDICATIONS Status RXNORM ND Medication Dose Route Frequency Rat e Quantity Dates Comments Physician Updated By Jonathon inued [phone] MAGNESIUM-O XIDE 400 (240 Mg) MG TABS 400.0 MG ORAL ONE TIME ONLY Start: February 05, 2025 3:05:0 0 PM UTC End: February 05, 2025 3:05:0 0 PM UTC TAI France MD INTERF ED on February 05, 2025 3:05:00 PM UTC SOCIAL HISTORY SOCIAL HISTORY SNOMED-CT Social History Element Description Effective Dates Offered Cessation Comment UpdatedBy [id number] Current Tobacco smoking status Current Every Day Smoker [id number] on February 05, 2025 1:58:35 PM UTC SOCIAL HISTORY - Gender Sex: Female SOCIAL HISTORY - Status : status i nformation is not available Intention in Next Year: intention information is not available SOCIAL HISTORY - Sexual Behavior Sexual Orientation Gender Identity SNOMED-CT Description SNO MED -CT Description Activity Level No of Partners Partner Type UpdatedBy Information is not available VITAL SIGNS PATIENT VITAL SIGNS This section displays the mo st recent value for each vital sign as of February 08, 2025 6:09:56 PM [place] Loinc Code Vital Sign Activity Date Result Updated By 8302-2 Body height February 05, 2025 1:52:52 PM UTC 167.74 cm (66.0 in) [id number] on February 05, 2025 1:52:[place] [address]-6 Body mass index (BMI ) [Ratio] February 05, 2025 1:52:52 PM UTC 32.307 kg/m2 [id number] on February 05, 2025 1:52:52 PM UT 3140-1 Body Surface Area Derived From Formula February 05, 2025 1:52:52 PM UTC 2.0027 m2 [id number] on February 05, 2025 1:52:52 PM UT 8310-5 Body temperature February 05, 2025 1:50:43 PM UTC 97.2 [degF] [id number] on February 06, 2025 3:18:[place] [address]-8 Body weight Measured February 05 1:52:52 PM UTC 90.9 kg (200.0 lb) [id number] on February 05, 2025 1:52:52 PM UT 8462-4 Diastolic blood pressure February 05, 2025 1:50:43 PM UTC 79.0 mm[Hg] [id number] on February 06, 2025 3:18:51 PM UT 8867-4 Heart rate February 05, 2025 1:50:43 PM UTC 69 /min [id number] on February 06, 2025 3:18:[place] [address]-0 Oxygen saturation in Arterial blood by Pulse oximetry February 05, 2025 1:50:43 PM UTC 100.0 % [id number] on February 06, 2025 3:18:51 PM UT 9279-1 Respiratory rate February 05, 2025 1:50:43 PM UTC 18 /min [id number] on February 06, 2025 3:18:51 PM UT 8480-6 Systolic blood pressure February 05, 2025 1:50:43 PM UTC 145.0 mm[Hg] [id number] on February 06, 2025 3:18:51 PM [facility] PEDIATRIC GROWTH CHART - VITAL SIGNS This section displays Head C ircumference Percentile, Weight for Length Percentile and BMI Percentile Loinc Code Pediatric Measure Age (Months) Result Updat ed By No Pediatric Growth Chart Pe rcentile Information Available. HEALTH CONCERNS Problems Concern Status Health Concern problem infor mation not available. Smoking Status Status Years Used Consumed packs p er day Health Concern smoking histo ry information not available. Family History Concern Status Health Concern family histor y information not available. ENCOUNTERS ENCOUNTER INFORMATION Reason for Visit ANXIETY Admission February 05, 2025 1:42:[address] [address] Discharge February 05, 2025 3:18:00 PM UT DISC HARGED TO HOME OR SELF CARE ENCOUNTER DIAGNOSES Notes information is not elis ilable. Code System Diagnosis Onset Date Diagnosis information is not available. ABSTRACT DIAGNOSES Code System Diagnosis Updated By F41.9 ICD10 ANXIETY DISORDER, UNSPECIFIE D [id number] on February 08, 2025 6:09:26 PM UT R00.2 ICD10 PALPITATIONS [id number] on February 08, 2025 6:09:26 PM UT R00.2 ICD10 PALPITATIONS [id number] on February 08, 2025 6:09:26 PM [facility] E83.42 ICD10 HYPOMAGNESEMIA [id number] on 2024 6:09:26 PM [facility] I10 ICD10 ESSENTIAL (PRIMARY) HYPERTEN PRACHI [id number] on February 08, 2025 6:09:26 PM UT F41.9 ICD10 ANXIETY DISORDER, UNSPECIFIE D [id number] on February 08, 2025 6:09:26 PM UT F32.A ICD10 DEPRESSION, UNSPECIFIED [id number] on February 08, 2025 6:09:26 PM UT Z72.0 ICD10 TOBACCO USE [id number] on February 08, 2025 6:09:26 PM UT Z88.2 ICD10 ALLERGY STATUS TO SULFONAMID ES [id number] on February 08, 2025 6:09:26 PM UT Z88.5 ICD10 ALLERGY STATUS TO NARCOTIC A GENT [id number] on February 08, 2025 6:09:26 PM UT Z88.1 ICD10 ALLERGY STATUS T O OTHER ANTIBIOTIC AGENTS [id number] on February 08, 2025 6:09:26 PM [facility] 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) DR SAMARA THERAPY [id number] on February 08, 2025 6:09:26 PM [facility] CARE TEAM Care Glass Carrier Role JUSTYN LUJAN Admitting ROGER RODRIGUEZ Primary Care JUSTYN LUJAN Primary Attending JUSTYN LUJAN Referring CARE TEAM CARE cigar head puncher Role on Team Status Start Date End Date Update d By JENNIFER DURAN APRN PCP normal February 05 2:05:29 PM [facility] February 05, 2025 3:18:00 PM [facility] [id number] on February 05, 2025 2:05:29 PM [facility] TAI ASHER Referring normal February 05, 2025 1:49:03 PM [facility] February 05, 2025 3:18:00 PM [facility] [id number] on February 05, 2025 2:05:29 PM [facility] TAI ASHER Attending normal February 05, 2025 1:49:02 PM [facility] February 05, 2025 3:18:00 PM [facility] [id number] on February 05, 2025 2:05:29 PM [facility] TAI ASHER Admitting normal February 05, 2025 1:49:02 PM [facility] February 05, 2025 3:18:00 PM [facility] [id number] on February 05, 2025 2:05:29 PM [facility] ANTONIA NARVAEZ MD PCP normal February 05 1:43:31 PM [facility] February 05, 2025 2:05:29 PM [facility] [id number] on February 05, 2025 2:05:29 PM [facility]
[2025-02-13 06:29] VITALS: BP 145/96; PULSE 79; RESP 18; TEMP 36.5; O2SAT 100; BMI 31.6
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
--- NOTE | 2025-02-13 06:34 | XR_ITS ---
FINAL REPORT CLINICAL HISTORY: Palpitations, anxiety, chest pain COMPARISON: 12/28/2023 FINDINGS: A portable view of the chest was obtained. Cardiac and mediastinal silhouettes are within normal limits. The lungs are clear. There is no pleural effusion or pneumothorax. IMPRESSION: No acute process on this portable exam. Reviewed, Interpreted and Dictated by Berenice Quiroz MD Transcribed by Kristie Soto Authenticated and [facility]
--- NOTE | 2025-02-13 06:37 | ECG_ITS ---
APPROVED REPORT Exam: Resting ECG HR:70 bpm ECG Measurements Heart Rate 70 AXES [place] 154 P 80 QRSd 102 QRS 70 QT 390 T 62 QTc 411 Conclusion SINUS RHYTHM WITH SINUS ARRHYTHMIA NORMAL ECG Electronically signed by : KIM LIM, 02/14/2025 03:49:28
[2025-02-13 06:46] VITALS: PULSE 70; O2SAT 99
[2025-02-13 06:51] LABS: Basophils # 0.1 K/mm3 (0-0.2); Basophils % 0.7 % (0.1-2.0); Eosinophils # 0.1 Kmm3 (0.0-0.4); Eosinophils % 0.7 % (0.1-12.0); Hematocrit 39.8 % (37.0-47.0); Hemoglobin 13.5 g/dL (12.2-16.2); Immature Granulocytes # 0.02 10^3uL; Immature Granulocytes % 0.2 %; Lymphocytes # 2.7 K/mm3 (0.7-4.5); Lymphocytes % 28.3 % (10-50); Mean Corpuscular HGB Conc 33.9 g/dL (31.8-35.4); Mean Corpuscular Hemoglobin 30.1 pg (27.0-31.2); Mean Corpuscular Volume 88.8 fl (81-99); Monocytes # 0.8 K/mm3 (0.1-1.0); Monocytes % 7.9 % (1.7-9.3); Neutrophils # 5.9 K/mm3 (1.8-7.8); Neutrophils % 62.2 % (37.0-80.0); Nucleated Red Blood Cells # 0 10^3/uL; Nucleated Red Blood Cells % 0 %; Platelet Count 297 K/mm3 (142-424); Red Blood Count 4.48 M/mm3 (4.20-5.40); Red Cell Distribution Width 12.1 % (11.5-17.5); Red Cell Distribution Width-SD 39.6 fL; White Blood Count 9.6 K/mm3 (4.8-10.8)
[2025-02-13 06:54] LABS: Albumin Level 4.6 g/dl (3.5-5.0); Chloride 108 mmol/L (98-107); Potassium 4.1 mmoL/L (3.5-5.1); Sodium 139 mmol/L (136-145)
[2025-02-13 06:56] LABS: Blood Urea Nitrogen 16 mg/dl (7-17); Creatinine Clearance Estimated 118 mL/min (50-200); Estimated Glomerular Filt Rate 71 ml/min (>60); GFR (African American) 86 ML/MIN (>60)
[2025-02-13 06:57] LABS: Alanine Aminotransferase 18 U/L (12-78); Albumin/Globulin Ratio 1.4 (1.1-1.8); Alkaline Phosphatase 72 U/L (38-126); Anion Gap 8.1 mEq/L (5-15); Aspartate Amino Transferase 22 U/L (14-36); Bilirubin,Total 0.5 mg/dl (0.2-1.3); Calcium 9.6 mg/dl (8.4-10.2); Carbon Dioxide 27 mmol/L (22.0-30.0); Globulin 3.2 g/dL (1.3-3.2); Glucose 112 mg/dl (74-100); Total Protein,Serum 7.8 g/dl (6.3-8.2)
[2025-02-13 06:58] LABS: Magnesium 1.8 mg/dl (1.6-2.3)
[2025-02-13 07:19] LABS: Troponin I < 0.01 ng/ml (0.00-0.034)
--- NOTE | 2025-02-13 07:20 | PC.NURSE ---
rounded on pt and informed her we were just waiting on her labs to come back. no needs reported at this time
[2025-02-13 07:26] VITALS: BP 122/94; PULSE 73; O2SAT 98
[2025-02-13 07:29] LABS: Free T4 (Free Thyroxine) 0.76 ng/dl (0.78-2.19)
--- NOTE | 2025-02-13 07:58 | PC.NURSE ---
Rounded on patient, no needs voiced at this time. call mancilla in reach.
[2025-02-13 08:17] VITALS: BP 127/89; PULSE 89; RESP 15; TEMP 36.6; O2SAT 98
== END 2025-02-13 08:20 | disposition home or self-care (01) ==
PROVIDERS: Emergency Medicine; Emergency Provider Emergency Medicine; PCP Nurse Practitioner Family
DX: R00.2 Palpitations (principal); F41.1 Generalized anxiety disorder
CPT/HCPCS: 71045; 80053; 83735; 84439; 84443; 84484; 85025; 93005; 99284

== ENCOUNTER 2025-02-24 13:16 | Outpatient (CLI) | payer OTHER, SELFPAY ==
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
--- OUTSIDE RECORDS SUMMARY | 2025-02-24 13:19 | XMS_ITS | Clinical Summary ---
Author Organization [facility] Address [address] [place] [address] Care Team Providers Care Gluer Machine Setup Operator Name Role Phone Mohsen Pratibha Lopez PRESTON Primary Care Provider [phone] Allergies Active Allergy Reactions Criticality Noted Date Comments Sulfamethoxazole-Trimethopr im Unknown - Patient states they do not know rxn details Low 02/12/2025 Cefaclor Hives,Unknown - Haley ent states they do not know rxn details Medium 01/11/2018 Hydrocodone-Acetaminophen Hives Medium 06/10/2018 Oxycodone Unknown - Patient st ates they do not know rxn details Low 01/11/2018 Medications vilazodone (Viibryd) 10 mg tablet Take 1 tablet by mouth. Take with food. 01/21/2025 Active potassium chloride ER (Micro-K) 10 MEQ ER capsule Take 1 capsule by mouth daily. Active Vitamin D3 Maximum Strength 125 MCG (5000 UT) capsule Take 1 capsule by mouth daily. 03/13/2024 Active bisoprolol (Zebeta) 5 MG tablet 02/09/2025 Active Active Problems No known active problems Encounters Date Type Department Care Team Description 02/12/2025 3:45 PM EDT Consult [facility] Otolaryngology [address] [address] Heath Lott MD Osteoma (Primary Dx) 02/12/2025 Travel 01/02/2025 Telephone [facility] Otolaryngology [address] [phone] Heath Lott MD HCN - Patient Message from Last 3 Months Family History Medical History Relation Name Comments Arthritis Other 1 Stroke Other 2 Diabetes Other 3 Hypertension Other 4 Other cancer Other 5 Conversions - Other Other 6 FH: ment al illness Heart Problem Other 7 Relation Name Status Comments Other 1 Other 2 Other 3 Other 4 Other 5 Other 6 Other 7 Social History Tobacco Use Types Packs/Day Years Used Date Smoking Tobacco: Every Day Comments Unknown Sex and Gender Information Value Date Recorded Sex Assigned at Not on file Legal Sex Female 8:22 PM EDT Gender Identity Female 02/12/2025 2:14 PM EDT Sexual Orientation Not on file Last Filed Vital Signs Vital Sign Reading Time Taken Comments Blood Pressure 136/93 02/12/2025 3:21 PM EDT Pulse 73 02/12/2025 3:21 PM EDT Temperature - - Respiratory Rate - - Oxygen Saturation - - Inhaled Oxygen Concentration - - Weight 104 kg (229 lb 4.5 oz) 10/24/2018 8:21 AM EST Height 166.4 cm (5' 5.5 ) 02/12/2025 3:21 PM EDT Body Mass Index 37.01 10/24/2018 8:21 AM EST Plan of Treatment Upcoming Encounters Date Type Department Care Team (Latest Contact Info) Description 03/30/2025 7:30 AM EDT Hospital Encounter [facility] [address] [place] [address] Heath Lott MD [address] [phone] 03/30/2025 7:30 AM EDT - 03/30/2025 8:40 AM EDT Surgery [facility] [address] [place] [address] Heath Lott MD [address] [phone] Removal of osteoma on forehead 04/06/2025 10:00 AM EDT Office Visit [facility] Otolaryngology [address] [place] [phone] Scheduled Procedures Name Priority Associated Diagnoses Date/Ti me ADD-ON OTHER Osteoma of face 03/30/2025 7:30 AM EDT Health Maintenance Due Date Last Done Comments [facility]-Depression Screening 1988 [facility]-HIV Screening 1988 [facility]-Hepatitis C Screening 1988 [facility]-/Child/Adol SDOH Screenings 1988 [facility]Y-Varicella Vaccines (1 of 2 - 13+ 2-dose series) 2001 [facility]-DTaP,Tdap,and Td Vaccines (2 - Tdap) 06/20/2003 06/19/2003 HPV Vaccines (1 - 3-dose series) 2003 [facility]- SDOH Screenings 2006 [facility]-Adult SDOH Screenings 2006 [facility]Y-Pneumococcal Vaccine: Pediatrics (0 to 5 Years) and At-Risk Patients (6 to 49 Years) (1 of 2 - PCV) 2007 [facility]Y-Pap Smear 2009 [facility]Y-Cervical Cancer Screening 2018 UKY-HPV/Cotest 2018 [id number] Vaccine ( - 2023- season) 2024 [facility]Y-Influenza Vaccine (Season Ended) 2025 UKY-Zoster Vaccines (1 of 2) 2038 [facility]-Hepatitis B Vaccines Completed 003, 04/15/2002, 03/12/2002 UKY-HIB Vaccines Aged Out No longer e ligible based on patient's age to complete this topic UKY-Hepatitis A Vaccines Aged Out No longer eligible based on patient's age to complete this topic UKY-IPV Vaccines Aged Out No longer e ligible based on patient's age to complete this topic UKY-Rotavirus Vaccines Aged Out No lo nger eligible based on patient's age to complete this topic Insurance [employer] Care Teams Gluer Machine Setup Operator Relationship Specialty Start Date End Date Pratibha Connolly, MOHAN [address] [place] [address] PCP - General 02/12/25
--- OUTSIDE RECORDS SUMMARY | 2025-02-24 13:19 | XMS_ITS | Encounter Summary ---
Author Organization [facility] Address [address] [place] [address] Care Team Providers Care Treating Engineer Name Role Phone Tay Sutton MD Primary Care Provider [phone] Reason for Visit * Reason Onset Date Comments HCN - Patient Message 01/02/2025 Encounter Details Date Type Department Care Team (Late st Contact Info) Description 01/02/2025 Telephone [facility] [address] [place] [address] Heath Lott MD [address] [place] [address] HCN - Patient Message Social History Tobacco Use Types Packs/Day Years Used Date Smoking Tobacco: Every Day Comments Unknown Sex and Gender Information Value Date Recorded Sex Assigned at Not on file Legal Sex Female 8:22 PM EDT Gender Identity Female 02/12/2025 2:14 PM EDT Sexual Orientation Not on file documented as of this encounter Miscellaneous Notes * Telephone Encounter - Abril Ca - 01/05/2025 2:50 PM EDT Patient Phone Message Reason for Call: Pt has called back, looking to schedule current referral with Dr Lott. Please advise Best contact number and optimal time of day to reach caller: [phone] Note: Please do not reply to this message. Follow-up communication and further actions as a result of this message need to be communicated with the patient directly, if the patient is not active onMyChart. If the patient is active on MyChart, they will receive notification of the communication/outcome via MyChart. * Telephone Encounter - Constanza Comer - 01/02/2025 9:02 AM EDT Reginald Palma this is Plastics Dr Lott is in [facility] and ENT not hjere * Telephone Encounter - Louie Wang - 01/02/2025 8:44 AM EDT Patient Phone Message Reason for Call: Pt called to check status of referral that was sent to ENT late November to Dr. Lott. Referral on file canceled with the message that pt would need to be seen at ophthalmology rather than ENT but manager story wanted to refer to Dr. Lott. Pt mentions that she has a horn-like bone protruding from her for forehead close to her hairline sodoes not believe it has anything to do with her eye. Pt requesting call from clinic to clarify and see what could be advised. Best contact number and optimal time of day to reach caller: [phone] - anytime Note: Please do not reply to this message. Follow-up communication and further actions as a result of this message need to be communicated with the patient directly, if the patient is not active onMyChart. If the patient is active on MyChart, they will receive notification of the communication/outcome via MyChart. documented in this encounter Plan of Treatment Upcoming Encounters Date Type Department Care Team (Latest Contact Info) Description 03/30/2025 7:30 AM EDT Hospital Encounter [facility] [address] [place] [address] Heath Lott MD [address] [facility] [address] [place] [address] 03/30/2025 7:30 AM EDT - 03/30/2025 8:40 AM EDT Surgery [facility] [address] [place] [address] Heath Lott MD [address] [place] [address] Removal of osteoma on forehead 04/06/2025 10:00 AM EDT [facility] [address] [place] [address] Scheduled Procedures Name Priority Associated Diagnoses Date/Ti me ADD-ON OTHER Osteoma of face 03/30/2025 7:30 AM EDT documented as of this encounter Visit Diagnoses Not on filedocumented in this encounter Care Teams Treating Engineer Relationship Specialty Start Date End Date Tay Sutton MD [address] [facility] [address] [place] [address] PCP - General 01/21/21 02/11/25 documented as of this encounter
--- OUTSIDE RECORDS SUMMARY | 2025-02-24 13:20 | XMS_ITS | Encounter Summary ---
Author Organization [facility] Address [address] [place] [address] Care Team Providers Care Computational Scientist Name Role Phone Pratibha Connolly APRN Primary Care Provider [phone] Encounter Details Date Type Department Care Team (Latest Contact Info) Description 02/12/2025 Travel Social History Tobacco Use Types Packs/Day Years Used Date Smoking Tobacco: Every Day Comments Unknown Sex and Gender Information Value Date Recorded Sex Assigned at Not on file Legal Sex Female 8:22 PM EDT Gender Identity Female 02/12/2025 2:14 PM EDT Sexual Orientation Not on file documented as of this encounter Plan of Treatment Upcoming Encounters Date Type Department Care Team (Latest Contact Info) Description 03/30/2025 7:30 AM EDT Hospital En[facility] [address] [place] [address] Heath Lott MD [address] [phone] 03/30/2025 7:30 AM EDT - 03/30/2025 8:40 AM EDT Surgery [facility] [address] [place] [phone] Heath Lott MD [address] [phone] Removal of osteoma on forehead 04/06/2025 10:00 AM EDT Office Visit [facility] [address] [place] [address] Scheduled Procedures Name Priority Associated Diagnoses Date/Ti me ADD-ON OTHER Osteoma of face 03/30/2025 7:30 AM EDT documented as of this encounter Visit Diagnoses Not on filedocumented in this encounter Additional Health Concerns Assessment Noted Time A Body Mass Index follow-up plan has been documented for the patient 02/12/2025 5:01 PM EDT documented as of this encounter Care Teams Computational Scientist Relationship Specialty Start Date End Date Pratibha Connolly APRN [address] [place] [address] PCP - General 02/12/25 documented as of this encounter
--- NOTE | 2025-02-24 13:30 | US_ITS ---
FINAL REPORT TECHNIQUE: Real-time grayscale and color ultrasound of the thyroid was performed. CLINICAL HISTORY: history of thryoid nodule; h/o isthmus nodule COMPARISON: 11/27/2023 FINDINGS: The thyroid gland measures 4.8 x 1.8 x 1.5 cm on the right and 4.8 x 1.4 x 1.7 cm on the left. The isthmus measures 6 mm. The parenchyma is unremarkable . Nodules: Again seen is a 1.9 x 1.3 cm hypoechoic solid TR 4 nodule which appears slightly smaller than in the previous exam. On the right is a 1.0 cm ovoid hypoechoic TR 4 nodule. On the left is a 1.5 cm hypoechoic solid TR 4 nodule. IMPRESSION: Redemonstration of isthmus nodule, slightly smaller and known to have previously been biopsied. 1.5 cm TR 4 lesion on the left not clearly seen on the previous exam. Per TI-RADS criteria, FNA recommended. Reviewed, Interpreted and Dictated by Rex Ocampo MD Transcribed by Kristie Soto Authenticated and [facility]
== END 2025-02-24 23:59 | disposition home or self-care (01) ==
LOC: RAD 13:17
PROVIDERS: PCP Nurse Practitioner Family; Visit Provider Otolaryngology
DX: E04.1 Nontoxic single thyroid nodule (principal); E07.89 Other specified disorders of thyroid; Z86.39 Personal history of other endocrine, nutritional and metabolic disease
CPT/HCPCS: 76536

== ENCOUNTER 2025-06-22 11:47 | Outpatient (CLI) | payer OTHER, SELFPAY ==
--- OUTSIDE RECORDS SUMMARY | 2025-06-23 11:49 | XMS_ITS | Clinical Summary ---
Author Organization [facility] Address [facility] [place] [address] Care Team Providers Care Drawing Operator Name Role Phone Pratibha Connolly MOHAN Primary Care Provider [phone] Allergies Active Allergy Reactions Criticality Noted Date Comments Sulfamethoxazole-Trimethop rim Unknown - Patient states they do not know rxn details Low 02/12/2025 Cefaclor Hives,Unknown - Haley ent states they do not know rxn details Medium 01/11/2018 Hydrocodone-Acetaminophen Itching Medium 06/10/2018 Oxycodone-Acetaminophen Nausea 03/30/2025 Medications vilazodone (Viibryd) 10 mg tablet Take 1 tablet by mouth. Take with food. 5 Active potassium chloride ER (Micro-K) 10 MEQ ER capsule Take 1 capsule by mouth daily. Active Vitamin D3 Maximum Strength 125 MCG (5000 UT) capsule Take 1 capsule by mouth daily. 4 Active bisoprolol (Zebeta) 5 MG tablet 5 Active LORazepam (Ativan) 1 MG tablet Take 1 tablet by mouth every 6 hours as needed for anxiety. Active oxyCODONE (Roxicodone) 5 MG immediate release tablet Take 1 tablet by mouth every 6 hours as needed for moderate pain or severe pain. 15 tablet 5 Active naloxone (Narcan) 4 mg/0.1 mL nasal spray 1. Give 1 spray in nostril for no/slow breathing or cannot wake after opioid use 2. Call 911 3. Repeat in other nostril if symptoms continue 1 each 5 Active acetaminophen (Tylenol) 500 MG tablet Take 2 tablets by mouth every 6 hours as needed for pain. 100 tablet Active Active Problems No known active problems Encounters Date Type Department Care Team Description 04/27/2025 Travel 03/30/2025 7:30 AM EDT - 03/30/2025 8:40 AM EDT Surgery [facility] Surgery [address] [place] [phone] Tylor Curry MD Removal of osteoma on forehead 03/30/2025 7:25 AM EDT Anesthesia Event [facility] [address] [place] [phone] Crystal De La Fuente MD Harward, Amy E, PA 03/30/2025 5:04 AM EDT - 03/30/2025 9:10 AM EDT Hospital Encounter [address] [address] Heath Lott MD Osteoma of face Discharge Disposition: Home or Self Care 03/30/2025 Travel 03/25/2025 11:30 AM EDT [facility] [address] [place] [address] 03/25/2025 Travel 03/23/2025 Travel from Last 3 Months Family History Medical History Relation Name Comments Arthritis Other 1 Stroke Other 2 Diabetes Other 3 Hypertension Other 4 Other cancer Other 5 Conversions - Other Other 6 FH: ment al illness Heart Problem Other 7 Anesthesia problems Neg Hx Malig Hyperthermia Neg Hx Relation Name Status Comments Other 1 Other 2 Other 3 Other 4 Other 5 Other 6 Other 7 Social History Tobacco Use Types Packs/Day Years Used Date Smoking Tobacco: Every Day Cigarettes 1 18.8 Started: 2006 Smokeless Tobacco: Current Tobacco Cessation:Ready to Q uit: Not Asked; Counseling Given: Not Answered Comments No Sex and Gender Information Value Date Recorded Sex Assigned at Not on file Legal Sex Female 8:22 PM EDT Gender Identity Female 02/12/2025 2:14 PM EDT Sexual Orientation Not on file Last Filed Vital Signs Vital Sign Reading Time Taken Comments Blood Pressure 119/91 03/30/2025 8:45 AM EDT Pulse 68 03/30/2025 8:45 AM EDT Temperature 36.5 C (97.7 F) 03/30/2025 8:45 AM EDT Respiratory Rate 16 03/30/2025 8:45 AM EDT Oxygen Saturation 98% 03/30/2025 8:45 AM EDT Inhaled Oxygen Concentration - - Weight 89 kg (196 lb 3.4 oz) 03/30/2025 6:05 AM EDT Height 165.1 cm (5' 5 ) 03/30/2025 6:05 AM EDT Body Mass Index 32.65 03/30/2025 6:05 AM EDT Plan of Treatment Health Maintenance Due Date Last Done Comments [facility]-Depression Screening 1988 [facility]Y-HIV Screening 1988 [facility]-Hepatitis C Screening 1988 [facility]Y-/Child/Adol SDOH Screenings 1988 [facility]Y-Varicella Vaccines (1 of 2 - 13+ 2-dose series) 2001 [facility]Y-DTaP,Tdap,and Td Vaccine s (2 - Tdap) 06/20/2003 06/19/2003 [facility]Y- SDOH Screenings 2006 [facility]Y-Adult SDOH Screenings 2006 UKY-Pneumococcal Vaccine: Pediatrics (0 to 5 Years) and At-Risk Patients (6 to 49 Years) (1 of 2 - PCV) 2007 HPV Vaccines (1 - 3-dose SCD M series) 2015 [id number] Vaccine (1 - season) 2025 [facility]Y-Influenza Vaccine (#1) 2025 UKY-Zoster Vaccines (1 of 2) 2038 UKY-Hepatitis B Vaccines Completed 003, 04/15/2002, 03/12/2002 UKY-Obesity Intervention Completed 02/12/2025 UKY-HIB Vaccines Aged Out No longer e [...] on patient's age to complete this topic Medical Devices Implanted Type Area Air Hammer Stripper Device Identifier Shelf Expiration Date Model / Serial / Lot Plate Pds W/Perf .25mm - [id number] Implanted:03/30 at [facility] (Quantity not on file) [id number] / / Procedures Procedure Name Priority Date/Time Associated Diagnosis Comments SURGICAL PATHOLOGY EXAM Routine 03/30/2025 7:53 AM EDT Osteoma of face PB ANESTHESIA PLACEHOLDER Routine 03/30/2025 7:30 AM EDT KS AN ELECTIVE SUPRAGLOTTIC AIRWAY Routine 03/30/2025 7:30 AM EDT EXCISION, LESION, FACE OR NECK 03/30/2025 7:20 AM EDT Osteoma of face OXYGEN THERAPY Routine 03/30/2025 6:53 AM EDT from Last 3 Months Results * Surgical Pathology Exam (03/30/2025 7:53 AM EDT) Case Report Surgical Pathology Case: [id number] Authorizing Provider: Tylor Curry MD Collected: 03/30/2025 0753 Ordering Location: [facility] Received: 03/30/2025 0944 Surgery Pathologist: Fabian Zimmerman MD Specimen: Forehead, Scalp osteoma 04/01/2025 9:50 AM EDT [facility] Final Diagnosis A. SCALP, EXCISION: - FRAGMENT OF DENSE, COMPACT LAMELLAR BONE, CONSISTENT WITH AN OSTEOMA 04/01/2025 9:50 AM EDT [facility] at 0950 EDT Clinical Information Osteoma of face 04/01/2025 9:50 AM EDT [facility] Gross Description A. SCALP OSTEOMA Received in formalin labeled scalp osteoma , is 1 white-savage bone fragment measuring 0.3 cm in greatest dimension. Entirely submitted in cassette A1. Cold Time: <1m Yesi Pepe 04/01/2025 9:50 AM EDT [facility] Note: A resident was involved in the service. I attest I examined the relevant preparations for the specimens and confirmed the diagnosis or interpretation. 04/01/2025 9:50 AM EDT [facility] Tissue Forehead structure / Unknown 03/30/2025 7:53 AM EDT 03/30/2025 9:44 AM EDT Comment:Pre-op diagnosis: Osteoma of face us Tylor Curry MD LAB PATHOLOGY ORDERABLES Final R esult [facility] [address] [place] [address] * [place] AN ELECTIVE SUPRAGLOTTIC AIRWAY, PB ANESTHESIA PLACEHOLDER (03/30/2025 7:30 AM EDT) Narrative Karol Ruff CRNA - 03/30/2025 7:30 AM EDT Karol Ruff CRNA 03/30/2025 7:37 AM Airway Date/Time: 03/30/2025 7:30 AM Reason: elective Airway not difficult General Information and Staff Patient location during procedure: OR Anesthesiologist: Crystal Holliday MD CATEGORY PLANNER: Karol Ruff CRNA Performed: CATEGORY PLANNER Patient Condition Indications for airway management: anesthesia Patient position: sniffing Final Airway Details Final airway type: LMALMA Size: 4 LMA Type: normal Crystal Holliday MD ANESTHESIA ORDERABLES Final Result from Last 3 Months Insurance [address] [place] [address] [employer] Care Teams Drawing Operator Relationship Specialty Start Date End Date Pratibah Connolly APRN [address] [place] [address] PCP - General 02/12/25
--- OUTSIDE RECORDS SUMMARY | 2025-06-23 11:50 | XMS_ITS | Encounter Summary ---
Author Organization Healthcare Address [address] [place] [address] Care Team Providers Care Clothes Marker Name Role Phone Pratibha Connolly APRN Primary Care Provider [phone] Encounter Details Date Type Department Care Team (Latest Contact Info) Description 04/27/2025 Travel Social History Tobacco Use Types Packs/Day Years Used Date Smoking Tobacco: Every Day Cigarettes 1 18.8 Started: 2006 Smokeless Tobacco: Current Comments No Sex and Gender Information Value Date Recorded Sex Assigned at Not on file Legal Sex Female 8:22 PM EDT Gender Identity Female 02/12/2025 2:14 PM EDT Sexual Orientation Not on file documented as of this encounter Plan of Treatment Not on file documented as of this encounter Visit Diagnoses Not on filedocumented in this encounter Additional Health Concerns Assessment Noted Time A Body Mass Index follow-up plan has been documented for the patient 02/12/2025 5:01 PM EDT documented as of this encounter Care Teams Clothes Marker Relationship Specialty Start Date End Date Pratibha Connolly APRN [address] [place] [id number] PCP - General 02/12/25 documented as of this encounter
== END 2025-06-22 23:59 | disposition home or self-care (01) ==
LOC: LAB.DROPOF 06-23 11:47
PROVIDERS: PCP Nurse Practitioner Family; Visit Provider Nurse Practitioner Family
DX: N32.89 Other specified disorders of bladder (principal); R31.9 Hematuria, unspecified; M54.50 Low back pain, unspecified; R30.0 Dysuria
CPT/HCPCS: 87086

== ENCOUNTER 2025-06-23 16:08 | Outpatient (CLI) | payer OTHER, SELFPAY ==
--- OUTSIDE RECORDS SUMMARY | 2025-06-23 16:11 | XMS_ITS | Clinical Summary ---
Author Organization [facility] Address [facility] [place] [address] Care Team Providers Care Transportation Design Engineer Name Role Phone Pratibha Connolly MOHAN Primary Care Provider [phone] Allergies Active Allergy Reactions Criticality Noted Date [...] EDT - 03/30/2025 8:40 AM EDT Surgery [facility] [address] [place] [phone] Tylor Curry MD Removal of osteoma on forehead 03/30/2025 7:25 AM EDT Anesthesia Event [facility] [address] [place] [phone] Crystal De La Fuente MD Harward, Amy E, PA 03/30/2025 5:04 AM EDT - 03/30/2025 9:10 AM EDT Hospital Encounter [address] [phone] Heath Lott MD Osteoma of face Discharge Disposition: Home or Self Care 03/30/2025 Travel 03/25/2025 11:30 AM EDT Pre-Admission Testing [facility] [address] [place] [address] 03/25/2025 Travel 03/23/2025 Travel from Last 3 [...] (1 - 3-dose SCD M series) 2015 NEC-THYQX-25 Vaccine (1 - season) 2025 UKY-Influenza Vaccine [...] this topic Medical Devices Implanted Type Area Methods Time Analyst Device Identifier Shelf Expiration Date Model / Serial / Lot Plate Pds W/Perf .25mm - [id number] Implanted:03/30 at [facility] (Quantity not on file) [id number] / / Procedures Procedure Name Priority Date/Time Associated Diagnosis Comments SURGICAL PATHOLOGY EXAM Routine 03/30/2025 7:53 AM EDT Osteoma of face PB ANESTHESIA PLACEHOLDER Routine 03/30/2025 7:30 AM EDT OK AN ELECTIVE SUPRAGLOTTIC AIRWAY Routine 03/30/2025 7:30 AM EDT EXCISION, LESION, FACE OR NECK 03/30/2025 7:20 AM EDT Osteoma of face OXYGEN THERAPY Routine 03/30/2025 6:53 AM EDT from Last 3 Months Results * Surgical Pathology Exam (03/30/2025 7:53 AM EDT) Case Report Surgical Pathology Case: [id number] Authorizing Provider: Tylor Curry MD Collected: 03/30/2025 0753 Ordering Location: [facility] Received: 03/30/2025 0944 Surgery Pathologist: Fabian Zimmerman MD Specimen: Forehead, Scalp osteoma 04/01/2025 9:50 AM EDT [facility] Final Diagnosis A. SCALP, EXCISION: - FRAGMENT OF DENSE, COMPACT LAMELLAR BONE, CONSISTENT WITH AN OSTEOMA 04/01/2025 9:50 AM EDT [facility] at 0950 EDT Clinical Information Osteoma of face 04/01/2025 9:50 AM EDT [facility] Gross Description A. SCALP OSTEOMA Received in formalin labeled scalp osteoma , is 1 white-savage bone fragment measuring 0.3 cm in greatest dimension. Entirely submitted in cassette A1. Cold Time: <1m Yesi Pepe 04/01/2025 9:50 AM EDT [facility] Note: A resident was involved in the service. I attest I examined the relevant preparations for the specimens and confirmed the diagnosis or interpretation. 04/01/2025 9:50 AM EDT [facility] Tissue Forehead structure / Unknown 03/30/2025 7:53 AM EDT 03/30/2025 9:44 AM EDT Comment:Pre-op diagnosis: Osteoma of face us Tylor Curry MD LAB PATHOLOGY ORDERABLES Final R esult [facility] [address] [place] [address] * OK AN ELECTIVE SUPRAGLOTTIC AIRWAY, PB ANESTHESIA PLACEHOLDER (03/30/2025 7:30 AM EDT) Narrative Karol Ruff CRNA - 03/30/2025 7:30 AM EDT Karol Ruff CRNA 03/30/2025 7:37 AM Airway Date/Time: 03/30/2025 7:30 AM Reason: elective Airway not difficult General Information and Staff Patient location during procedure: OR Anesthesiologist: Crystal Holliday MD FIELD TECHNICIAN: Karol Ruff CRNA Performed: FIELD TECHNICIAN Patient Condition Indications for airway management: anesthesia Patient position: sniffing Final Airway Details Final airway type: LMALMA Size: 4 LMA Type: normal Crystal Holliday MD ANESTHESIA ORDERABLES Final Result from Last 3 Months Insurance [address] [place] [address] GENERIC COMMERCIAL Care Teams Transportation Design Engineer Relationship Specialty Start Date End Date Pratibha Connolly APRN [address] [place] [address] PCP - General 02/12/25
--- OUTSIDE RECORDS SUMMARY | 2025-06-23 16:11 | XMS_ITS | Encounter Summary ---
Author Organization Healthcare Address [address] [place] [address] Care Team Providers Care Baker Name Role Phone Pratibha Connolly APRN Primary Care Provider [phone] Encounter Details Date Type Department Care Team [...] documented as of this encounter Care Teams Baker Relationship Specialty Start Date End Date Pratibha Connolly APRN [address] [place] [id number] PCP - General 02/12/25 documented as of this encounter
== END 2025-06-23 23:59 | disposition home or self-care (01) ==
LOC: RT 16:09
PROVIDERS: PCP Nurse Practitioner Family; Visit Provider Nurse Practitioner Family
DX: I49.1 Atrial premature depolarization (principal); I49.3 Ventricular premature depolarization; F39 Unspecified mood [affective] disorder; I10 Essential (primary) hypertension; Z72.0 Tobacco use
CPT/HCPCS: 93270

== ENCOUNTER 2025-07-03 07:42 | Outpatient (CLI) | payer OTHER, SELFPAY ==
--- OUTSIDE RECORDS SUMMARY | 2025-07-03 07:44 | XMS_ITS | Clinical Summary ---
Author Organization [facility] Address [facility] [place] [address] Care Team Providers Care Program Director Cable Television Name Role Phone Pratibha Connolly MOHAN Primary Care Provider [phone] Allergies Active Allergy Reactions Criticality Noted Date [...] hours as needed for pain. 100 tablet 5 Active Active Problems No known active problems Encounters Date Type Department Care Team Description 04/27/2025 Travel from Last 3 Months Family History [...] (1 - 3-dose SCD M series) 2015 RZL-[id number]-27 Vaccine (1 - 2023- season) 2025 UKY-Influenza Vaccine (#1) 2025 UKY-Zoster [...] this topic Medical Devices Implanted Type Area Senior Hr Generalist Device Identifier Shelf Expiration Date Model / Serial / Lot Plate Pds W/Perf .25mm - [id number] Implanted:03/30 at [facility] (Quantity not on file) [facility]-[id number] ZFP / / Insurance [address] [facility]31 GENERIC COMMERCIAL Care Teams Program Director Cable Television Relationship Specialty Start Date End Date Pratibha Connolly APRN [address] [place] [address] [phone] (work) [facility] - General 02/12/25
--- NOTE | 2025-07-03 09:30 | CA_ITS ---
APPROVED REPORT EXAM: Comprehensive 2D, Doppler, and color-flow Echocardiogram Paper Final Inspector: Dora Mattson RT(R) Ht: 5 ft 5 in Wt: 200lbs BSA: 1.98 BP: 140/100 mmHg Indications: palpitations, HTN, smoker 2D Dimensions LA Volume 19.60 mL LA Volume Index 9.90 mL/m2 (M/F) 16-34 EF AP4 54.40 % GL Strain -18.8 % M-Mode Dimensions RVDd 2.07 cm (0.9-2.6) LA Diam 3.16 cm (1.9-4.0) LVDd 5.29 cm (3.5-5.7) LVDs 3.89 cm (3.5-5.7) IVSd 0.82 cm (0.6-1.1) PWd 0.82 cm (0.6-1.1) EF (Teich) 51.40% FS 26.50% EDV (Teich) 134.80 mL ESV (Teich) 65.50 mL LV Diastology E Decel Time 150 (160-240 msec) E/A Ratio 1.2 Mitral Valve MV E Max Ruben. 71.0 (40-130 cm/s) MV A Velocity 59.0 (40-130 cm/s) E/A Ratio 1.21 MV PHT 44.0 ms Left Ventricle The left ventricle is normal size. Left ventricular systolic function is normal. The left ventricular ejection fraction is within the normal range. There is normal left ventricular wall thickness. There is normal LV segmental wall motion. The left ventricular diastolic function is normal. LVEF is 55% Right Ventricle The right ventricle is normal size. The right ventricular systolic function is normal. Atria The left atrium size is normal. The right atrium size is normal. There is no color Doppler evidence of interatrial shunt. Aortic Valve The aortic valve opens well. There is no hemodynamically significant aortic valvular stenosis. No aortic regurgitation is present. Mitral Valve The mitral valve is normal in structure. No evidence of mitral valve stenosis. Trace mitral regurgitation is present. Tricuspid Valve The tricuspid valve leaflets are thin and pliable. Trace tricuspid regurgitation. There is insufficient TR jet to estimate RVSP. Pulmonic Valve The pulmonary valve is grossly normal in structure. Trace pulmonic valve regurgitation is present. Great Vessels The aortic root is normal in size. IVC is normal in size and collapses >50% with inspiration. Pericardium There is no pericardial effusion. Other Information Study Quality: Fair Conclusion Normal biventricular systolic function. No significant valvular stenosis or regurgitation. Electronically signed by : Michelle Lanza MD 07/07/2025 23:08:18
== END 2025-07-03 23:59 | disposition home or self-care (01) ==
LOC: RT 07:43
PROVIDERS: PCP Nurse Practitioner Family; Visit Provider Nurse Practitioner Family
DX: R00.2 Palpitations (principal); R06.00 Dyspnea, unspecified; F39 Unspecified mood [affective] disorder; I10 Essential (primary) hypertension; F17.200 Nicotine dependence, unspecified, uncomplicated
CPT/HCPCS: 93306; 94010

== ENCOUNTER 2025-07-03 20:39 | Emergency (ER) | payer OTHER, SELFPAY ==
[2025-07-03 20:41] VITALS: BP 170/95; PULSE 91; RESP 18; TEMP 36.7; O2SAT 98; BMI 33.3
--- NOTE | 2025-07-03 20:52 | CT_ITS ---
PROCEDURE INFORMATION: Exam: CT Abdomen And Pelvis With Contrast Exam date and time: 07/03/2025 9:28 PM Age: 34 years old Clinical indication: Abdominal pain; Flank; Right; Additional info: Right flank pain TECHNIQUE: Imaging protocol: Computed tomography of the abdomen and pelvis with contrast. Radiation optimization: All CT scans at this facility use at least one of these dose optimization techniques: automated exposure control; mA and/or kV adjustment per patient size (includes targeted exams where dose is matched to clinical indication); or iterative reconstruction. Contrast material: ISOVUE; Contrast volume: 75 ml; Contrast route: IV; COMPARISON: CT ABDOMEN PELVIS W CON 05/30/2024 8:25 AM FINDINGS: Liver: Normal. No mass. Gallbladder and biliary ducts: Gallbladder is surgically absent. No significant biliary ductal dilation. Pancreas: Normal. No ductal dilation. Spleen: Normal. No splenomegaly. Adrenal glands: Normal. No mass. Kidneys and ureters: Normal. No hydronephrosis. Stomach and bowel: Unremarkable. No obstruction. No mucosal thickening. Appendix: The appendix is visualized and appears normal. Intraperitoneal space: Unremarkable. No free air. No significant fluid collection. Vasculature: Unremarkable. No abdominal aortic aneurysm. Lymph nodes: Unremarkable. No enlarged lymph nodes. Urinary bladder: Unremarkable as visualized. Reproductive: Uterus is absent. Bilateral tubal ligation clips in the pelvis. Small simple appearing left ovarian cysts incidentally noted. No significant adnexal abnormality Bones/joints: Unremarkable. No acute fracture. Soft tissues: Unremarkable. IMPRESSION: No acute abnormality
--- OUTSIDE RECORDS SUMMARY | 2025-07-03 20:53 | XMS_ITS | Clinical Summary ---
Author Organization [facility] Address [facility] [place] [address] Care Team Providers Care Rope Machine Setter Name Role Phone Pratibha Connolly MOHAN Primary Care Provider [phone] Allergies Active Allergy Reactions Criticality Noted Date [...] (1 - 3-dose SCD M series) 2015 IFA-WDDTS-65 Vaccine (1 - 2023- season) 2025 UKY-Influenza [...] this topic Medical Devices Implanted Type Area Infantryman Device Identifier Shelf Expiration Date Model / Serial / Lot Plate Pds W/Perf .25mm - [id number] Implanted:03/30 at [facility] (Quantity not on file) [place] [facility]-[id number] ZFP / / Insurance [address] [facility] GENERIC COMMERCIAL Care Teams Rope Machine Setter Relationship Specialty Start Date End Date Pratibha Connolly APRN [address] [place] [address] [phone] (work) [facility] - General 02/12/25
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
[2025-07-03] MEDS: KETOROLAC 30MG/ML VIAL 30 MG IV (20:59)
[2025-07-03] MEDS: ONDANSETRON 4MG/2ML VIAL 4 MG IV (20:59)
[2025-07-03] MEDS: 0.9 % SODIUM CHLORIDE 1000ML 1,000 ML 999 ML IV (20:59)
[2025-07-03 21:00] VITALS: BP 130/84; PULSE 85; O2SAT 98
[2025-07-03 21:03] LABS: Hematocrit 39.3 % (37.0-47.0); Hemoglobin 13.4 g/dL (12.2-16.2); Immature Granulocytes % 0.3 %; Mean Corpuscular HGB Conc 34.1 g/dL (31.8-35.4); Mean Corpuscular Hemoglobin 30.5 pg (27.0-31.2); Mean Corpuscular Volume 89.3 fl (81-99); Nucleated Red Blood Cells % 0 %; Platelet Count 321 K/mm3 (142-424); Red Blood Count 4.40 M/mm3 (4.20-5.40); Red Cell Distribution Width-SD 38.4 fL; White Blood Count 12.0 K/mm3 (4.8-10.8)
[2025-07-03 21:14] LABS: Albumin Level 4.7 g/dl (3.5-5.0); Chloride 102 mmol/L (98-107); Potassium 4.0 mmoL/L (3.5-5.1); Sodium 136 mmol/L (136-145)
[2025-07-03 21:16] LABS: Blood Urea Nitrogen 15 mg/dl (7-17); Creatinine Clearance Estimated 139 mL/min (50-200); Creatinine,Serum 0.80 mg/dl (0.52-1.04); Estimated Glomerular Filt Rate 81 ml/min (>60); GFR (African American) 98 ML/MIN (>60)
[2025-07-03 21:17] LABS: Alanine Aminotransferase 19 U/L (12-78); Albumin/Globulin Ratio 1.3 (1.1-1.8); Alkaline Phosphatase 84 U/L (38-126); Anion Gap 11.0 mEq/L (5-15); Aspartate Amino Transferase 29 U/L (14-36); Bilirubin,Total 0.4 mg/dl (0.2-1.3); Calcium 9.1 mg/dl (8.4-10.2); Carbon Dioxide 27 mmol/L (22.0-30.0); Globulin 3.6 g/dL (1.3-3.2); Glucose 111 mg/dl (74-100); Lipase 113 U/L (23-300); Magnesium 1.8 mg/dl (1.6-2.3); Total Protein,Serum 8.3 g/dl (6.3-8.2)
[2025-07-03 21:19] LABS: HCG Qualitative, Serum Negative (Negative)
[2025-07-03] MEDS: IOPAMIDOL-370 (76%);100ML BOTTLE 75 ML IV (21:26)
[2025-07-03] MEDS: SODIUM CHLORIDE 0.9% 10ML SYR (RAD ONLY) 10 ML IV (21:26)
[2025-07-03 21:33] LABS: Microscopic, Urine URINE MICROSCOPIC (MICROSCOPIC)
[2025-07-03 21:35] LABS: Bilirubin,Urine Negative (Negative); Color,Urine YELLOW (Yellow); Glucose,Urine (UA) Negative (Negative); Ketones,Urine Negative (Negative); Leukocyte Esterase,Urine Negative (Negative); PH,Urine 6.5 (5.0-8.5); Protein,Urine Negative (Negative); Specific Gravity, Urine 1.010 (1.005-1.030); Urobilinogen,Urine 0.2 EU/dl (0.2)
[2025-07-03 21:38] LABS: Troponin I < 0.01 ng/ml (0.00-0.034)
[2025-07-03 21:47] LABS: Bacteria,Urine Trace /lpf; RBC,Urine Occasional #/hpf (0-3); Squamous Epithelial Cell,Urine Occasional #/hpf (0-5)
--- NOTE | 2025-07-03 22:41 | PC.NURSE ---
ed provider at the bedside updating pt on POC.
[2025-07-03 22:51] VITALS: BP 130/84; PULSE 62; RESP 16; TEMP 36.6; O2SAT 98
== END 2025-07-03 22:52 | disposition home or self-care (01) ==
PROVIDERS: Nurse Practitioner; Emergency Provider Student in an Organized Health Care Education/Training Program; PCP Nurse Practitioner Family
DX: R10.A1 Flank pain, right side (principal); R11.0 Nausea; F17.210 Nicotine dependence, cigarettes, uncomplicated
CPT/HCPCS: 74177; 80053; 81001; 83690; 83735; 84484; 84703; 85025; 96361; 96374; 96375; 99284; J1885; J2405; J7030; Q9967

== ENCOUNTER 2025-07-13 10:16 | Outpatient (CLI) | payer OTHER, SELFPAY ==
--- OUTSIDE RECORDS SUMMARY | 2025-07-13 10:23 | XMS_ITS | Clinical Summary ---
Author Organization [facility] Address [facility] [place] [address] Care Team Providers Care Foam Molder Name Role Phone Pratibha Connolly MOHAN Primary Care Provider [phone] Allergies Active Allergy Reactions Criticality Noted Date [...] (1 - 3-dose SCD M series) 2015 UOH-PFGDI-10 Vaccine (1 - 2023- season) 2025 UKY-Influenza [...] this topic Medical Devices Implanted Type Area Concrete Paver Device Identifier Shelf Expiration Date Model / Serial / Lot Plate Pds W/Perf .25mm - [id number] Implanted:03/30 at [facility] (Quantity not on file) [facility]-[id number] ZFP / / Insurance [address] [facility]31 GENERIC COMMERCIAL Care Teams Foam Molder Relationship Specialty Start Date End Date Pratibha Connolly APRN [address] [place] [address] [phone] (work) [facility] - General 02/12/25
[2025-07-13 10:31] LABS: Clostridium Difficile A/B, PCR Not Detected (NotDetected); Salmonella, PCR Not Detected (NotDetected)
--- NOTE | 2025-07-13 10:52 | XR_ITS ---
FINAL REPORT CLINICAL HISTORY: abd pain FINDINGS: ABDOMEN COMPLETE INCL DECUB/ERECT There is a nonspecific, nonobstructive bowel gas pattern. No abnormal dilatation is identified. There is no abnormal calcification. No free air is identified. IMPRESSION: No acute process. Reviewed, Interpreted and Dictated by Berenice Quiroz MD Transcribed by Bridget Rashid Authenticated and [facility]
[2025-07-13 12:46] LABS: Cyclospora Cayetanesis Not Detected (NotDetected); Shiga-like toxin E coli Not Detected (NotDetected); Shigella Enterovasive E coli Not Detected (NotDetected); Vibrio, PCR Not Detected (NotDetected); Yersinia Entercolitica, PCR Not Detected (NotDetected)
[2025-07-14 11:12] LABS: H. pylori Stool Ag, EIA Negative (Negative)
== END 2025-07-13 23:59 | disposition home or self-care (01) ==
LOC: LAB 10:17
PROVIDERS: PCP Nurse Practitioner Family; Visit Provider Nurse Practitioner Family
DX: R10.9 Unspecified abdominal pain (principal); R14.0 Abdominal distension (gaseous); R11.0 Nausea; R19.7 Diarrhea, unspecified; R14.2 Eructation; R14.3 Flatulence
CPT/HCPCS: 74019; 83013; 87045; 87338; 87506

== ENCOUNTER 2025-07-24 08:49 | Outpatient (CLI) | payer OTHER, SELFPAY ==
--- OUTSIDE RECORDS SUMMARY | 2025-07-24 08:59 | XMS_ITS | Clinical Summary ---
Author Organization [facility] Address [place] [address] Care Team Providers Care Water Jet Loom Fixer Name Role Phone Pratibha Connolly MOHAN Primary Care Provider [phone] Allergies Active Allergy Reactions Criticality Noted Date [...] Date Smoking Tobacco: Every Day Cigarettes 1 18.9 Started: 2006 Smokeless Tobacco: Current Tobacco Cessation:Ready [...] [facility]-HIV Screening 1988 [facility]-Hepatitis C Screening 1988 [facility]-Infant/Child/Adol SDOH Screenings 1988 [facility]-Varicella Vaccines (1 of 2 - 13+ 2-dose series) 2001 [facility]-DTaP,Tdap,and Td Vaccine s (2 - Tdap) 06/20/2003 06/19/2003 [facility]- SDOH Screenings 2006 [facility]-Adult SDOH Screenings 2006 [facility]-Pneumococcal Vaccine: Pediatrics (0 to 5 Years) and At-Risk Patients (6 to 49 Years) (1 of 2 - PCV) 2007 HPV Vaccines (1 - 3-dose SCD M series) 2015 [id number] Vaccine (1 - 2024- season) 2025 [facility]-Influenza Vaccine (#1) 2025 [facility]-Zoster [...] this topic Medical Devices Implanted Type [facility] Device Identifier Shelf Expiration Date Model / Serial / Lot Plate Pds W/Perf .25mm - [id number] Implanted:03/30 at [facility] (Quantity not on file) [place] [facility]-[id number] ZFP / / Insurance [address] [employer] GENERIC COMMERCIAL Care Teams Water Jet Loom Fixer Relationship Specialty Start Date End Date Pratibha Connolly APRN [address] [place] [id number] [phone] (work) [facility] - General 02/12/25
[2025-07-24 09:22] VITALS: BMI 33.3
[2025-07-24 09:23] VITALS: BP 135/94; PULSE 70; RESP 16; O2SAT 96
[2025-07-24] MEDS: METOPROLOL TARTRATE 50MG TABLET PO (09:29)
[2025-07-24] MEDS: IVABRADINE HCL 7.5MG TABLET PO (09:29)
--- NOTE | 2025-07-24 10:00 | CT_ITS ---
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 A noncontrast coronary calcium scan was performed. A CT attenuation threshold of 130 Hounsfield units (HU) was used for the detection of calcium in contiguous voxels of 1 sq mm in area to be counted as individual lesions. Bolus tracking in the ascending aorta with a threshold of 180 HU was performed. Immediately afterwards, ECG synchronized cardiac CT was then performed from the cardiac base to apex using retrospective gating with ECG tube current modulation. A total of 85 mL of Isovue 370 mg/mL contrast medium was administered at 5 mL/sec followed by a saline flush using a biphasic injection protocol. A tube voltage of 120 KVp was used. The patient received the following medications prior to the cardiac CT. 50 mg of oral metoprolol 15 mg of oral ivabradine The average heart rate at the time of acquisition was 61 bpm and regular. Image Reconstruction Transaxial images were reconstructed at 0.67 mm slide thickness. Data was reviewed interactively on an advanced workstation capable of 2 and 3-dimensional displays in all conventional reconstruction formats, including multiplanar reformations, maximum intensity projections, curved multiplanar reformations, and volume rendered reconstructions. When applicable, selected routine images describing the relevant coronary anatomy and pathology were saved and sent to PACS. Complications None Technical Quality Overall image quality was good. Coronary artery opacification was adequate. Total DLP (Dose-Length Product) is 1985.8 mGy-cm. The reported value represents the total of one or more individual components during the CT acquisition of this date and at this time, and as such, the same value may appear in more than one CT report depending on the interpreting/reporting physicians. COMPARISON None FINDINGS CT Coronary Calcium Scoring LMA (Left Main Artery) = 0 LAD (Left Anterior Descending) = 0 LCX (Left Coronary Circumflex) = 0 RCA (Right Coronary Artery) = 0 Total Calcium Score = 0 using the AJ-130 method. The interpretation of the calcium heart score is based on the following continuum*: 0 = no calcified plaque detected (risk of coronary artery disease is very low ??? less than 5%) 1-10 = calcium detected in extremely minimal levels (risk of coronary diseases is still low ??? less than 10%) 11-100 = mild levels of plaque detected with certainty (mild or minimal narrowing of heart arteries is likely) 101-400 = definite,at least moderate levels of plaque detected (relatively high risk of a heart attack within 3-5 years) >401-999 = extensive levels of plaque detected (high risk of heart attack, high levels of vascular disease are present, high likelihood of at least one significant coronary narrowing) *The calcium heart score quantifies the burden of coronary calcification/plaque in the coronary arteries. The calcium heart score is not able to evaluate the presence or burden of non-calcified (i.e. soft) plaque. There is no identifiable calcification in the aortic valve, mitral annulus or mitral valve, pericardium, or myocardium. Coronary CT Angiography The coronary arterial system is left dominant. Quantitative Stenosis Grading: Left Main (LM): The left main originates normally from the left sinus of Valsalva. The LM bifurcates into the left anterior descending artery and left circumflex artery. The LM is patent with no evidence of atherosclerosis. Left Anterior Descending (LAD) and Diagonal Branches: The LAD gives off 3 diagonal branch(es). The LAD and its branches are patent with no evidence of atherosclerosis. There is no evidence of LAD-myocardial bridge Left Circumflex (LCX) and Obtuse Marginals (OM): The LCX gives off 2 Obtuse Marginal (OM) branch(es). The LCX and its branches are patent with no evidence of atherosclerosis. Right Coronary Artery (RCA): The RCA originates normally from the right sinus of Valsalva. The RCA and its branches are patent with no evidence of atherosclerosis. Non-Coronary Cardiac Findings: Analysis of the left ventricular (LV) structure and function was performed after 3-D reconstruction of the LV from axial images, with user-corrected automatic contouring for assessment of LV volumes and user-defined reconstruction from oblique planes for measurement of 3-D cardiac structure and function. -The left ventricle systolic function is normal. -There is no left atrial appendage filling defect. Two right pulmonary veins and two left pulmonary veins drain normally into the left atrium. -No pericardial thickening or calcification. -Central and branch pulmonary arteries in the [id number] are unremarkable. -Thoracic aorta within the visualized thoracic aortic-branches in the [id number] is unremarkable. Extracardiac Structures No significant extra-cardiac findings. Note, however, that this study is focused on the cardiac findings. IMPRESSION -Absence of coronary calcification with an Agatston score = 0 using the AJ-130 method. -No evidence of significant flow-limiting atherosclerosis of the coronary arteries. -CAD-RADS 0. Management recommendations per ACC/AHA guidelines*, as clinically appropriate. *Recommendations: CAD RADS 0: Reassurance. Consider non-atherosclerotic causes of chest pain. CAD RADS 1: Consider non-atherosclerotic causes of chest pain. Consider preventive therapy and risk factor modification. CAD RADS 2: Consider non-atherosclerotic causes of chest pain. Consider preventive therapy and risk factor modification, particularly for patients with nonobstructive plaque in multiple segments. CAD RADS 3: Consider further functional testing. Consider symptom-guided anti-ischemic and preventive pharmacotherapy as well as risk factor modification per published guideline statements. CAD RADS 4A: Consider further functional testing or invasive coronary angiography with revascularization per published guideline statements. Consider symptom-guided anti-ischemic and preventive pharmacotherapy as well as risk factor modification per published guideline statements. CAD RADS 4B: Invasive coronary angiography recommended with revascularization per published guideline statements. Consider symptom-guided anti-ischemic and preventive pharmacotherapy as well as risk factor modification per published guideline statements. CAD RADS 5: Consider invasive angiography and/or viability assessment with revascularization per published guideline statements. Consider symptom-guided anti-ischemic and preventive pharmacotherapy as well as risk factor modification per published guideline statements. CRITICAL RESULT None COMMUNICATION Per this written report The coronary and cardiac findings of this CCTA were reviewed, reported, and signed by Jeremias Lanza MD ([employer]). Conclusion Electronically signed by : Michelle Lanza MD 07/25/2025 02:50:51
[2025-07-24 10:21] VITALS: BP 158/98; PULSE 59; RESP 16; TEMP 36.4; O2SAT 98
[2025-07-24] MEDS: 0.9 % SODIUM CHLORIDE 50 ML VIAL IV (10:23)
[2025-07-24] MEDS: SODIUM CHLORIDE 0.9% 10ML SYR (RAD ONLY) 10 ML IV (10:23)
[2025-07-24] MEDS: IOPAMIDOL-370 (76%);100ML BOTTLE 85 ML IV (10:24)
[2025-07-24 10:42] VITALS: BP 134/90; PULSE 76; RESP 18; TEMP 36.4; O2SAT 96
== END 2025-07-24 23:59 | disposition home or self-care (01) ==
PROVIDERS: PCP Nurse Practitioner Family; Visit Provider Internal Medicine
DX: R94.31 Abnormal electrocardiogram [ECG] [EKG] (principal); Z72.0 Tobacco use; R06.00 Dyspnea, unspecified; R00.2 Palpitations; Z82.49 Family history of ischemic heart disease and other diseases of the circulatory system; R07.9 Chest pain, unspecified
CPT/HCPCS: 75574; Q9967